=== PATIENT | female | born 1930 | race Caucasian/White ===

== ENCOUNTER 2016-09-06 01:11 | Inpatient (IN) | payer OTHER, MEDICARE ==
[2016-09-06] VITALS (9 sets, daily range): BP systolic 124–199; BP diastolic 63–95; PULSE 82–105; RESP 18–20; TEMP 97.1–98.9; O2SAT 91–97
[~2016-09-06] VITALS: Ht 154.9 cm; Wt 45.9 kg
[~2016-09-06 01:11] MED LIST: AMLO5TAB22 PO; CLOP75TA PO; HYDR-3533 PO; LEVO50TA51 PO; LOVA1TAB47 PO; OMEP20CA5 PO
[2016-09-06] MEDS ORDERED: PLAV75TA29 PO (01:43)
[2016-09-06] MEDS ORDERED: PRAV20TA2 PO (01:43)
[2016-09-06] MEDS ORDERED: AMLO5TAB2 PO (01:43)
[2016-09-06] MEDS ORDERED: MULT-6 PO (01:43)
[2016-09-06] MEDS ORDERED: VENTAER INH (01:43)
[2016-09-06] MEDS ORDERED: ASCO500C PO (01:43)
[2016-09-06] MEDS ORDERED: LEVO50TA4 PO (01:44)
[2016-09-06] MEDS ORDERED: LEVO75TA3 PO (01:45)
[2016-09-06] MEDS ORDERED: SODIUM CHLOR 0.9% 1000 ML INJ 1,000 ML IV SCH (02:02)
--- NOTE | 2016-09-06 02:09 | PD ---
HPI Chief Complaint: GI Complaint Time Seen by Provider: 02:02 Travel History International Travel<30 days: No Contact w/Intl Traveler<30days: No Traveled to known affect area: No History of Present Illness HPI The patient is an 85-year-old female who states she had diarrhea on Tuesday, 5 days ago, and she hasn't had a bowel movement since. She states she had noted blood passing from the rectum tonight and this is why she came in. She states she has a cycle of diarrhea and then no bowel movement for a number of days for the past year. She has a history of rectal cancer, and 1995 Dr. Ibarra removed a portion of her rectum. She has not seen Dr. Ibarra in for years. She is on Plavix because of deep vein thrombosis. She denies any syncopal or near syncopal spells. She does have rectal pain. PFSH Past Medical History Hx Anticoagulant Therapy: Yes (PLAVIX - BLOOD CLOT R FEMORAL ) Arthritis: Yes Autoimmune Disease: No Blood Disorders: No Anxiety: No Depression: No Cancer: Yes (hx rectal ca 17 years ago) Cardiovascular Problems: Yes (BLOOD CLOTS LEGS) High Cholesterol: Yes Chemotherapy: Yes (1995) Chest Pain: No Congestive Heart Failure: No Diminished Hearing: Yes (NOT WITH PT THIS VISIT 09/06/16) Deep Vein Thrombosis: Yes (R GROIN ) Endocrine: Yes (hypothyroid) Gastrointestinal Disorders: Yes GERD: Yes Genitourinary: Yes (STENT LEFT KIDNEY) Hypertension: Yes Immune Disorder: No Implanted Vascular Access Dvce: Yes Musculoskeletal: Yes Neurologic: No Psychiatric: No Reproductive: No Respiratory: No Radiation Therapy: Yes (1995) Sickle Cell Disease: No Thyroid Disease: Yes (HYPO) Menopausal: Yes Past Surgical History Abdominal Surgery: Yes (APPEmilie, CHOLEY) Appendectomy: Yes Body Medical Devices: RENAL STENT Cardiac Surgery: No Cholecystectomy: Yes Genitourinary Surgery: Yes (RENAL STENT, RECTAL CANCER) Gynecologic Surgery: No Hysterectomy: Yes Thoracic Surgery: No Tonsillectomy: Yes Other Surgery: Yes Social History Alcohol Use: No Tobacco Use: No (quit 30 years ago) Substance Use: No Allergies-Medications (Allergen,Severity, Reaction): Coded Allergies: No Known Allergies (Verified , 09/06/16) Reported Meds & Prescriptions Reported Meds & Active Scripts Active Reported Levothyroxine (Levothyroxine Sodium) 75 Mcg Tab 75 Mcg PO DAILY Centrum (Multiple Vitamins W/ Minerals) 1 Tab 1 Tab PO DAILY Vitamin C (Ascorbic Acid) 500 Mg Cap 500 Mg PO Ventolin Hfa 18 GM Inh (Albuterol Sulfate) 90 Mcg/Act Aer 2 Puff INH Q4-6H PRN Amlodipine (Amlodipine Besylate) 5 Mg Tab 5 Mg PO DAILY Pravastatin 20 Mg Tab 20 Mg PO DAILY Plavix (Clopidogrel Bisulfate) 75 Mg Tab 75 Mg PO DAILY Review of Systems Except as stated in HPI: all other systems reviewed are Neg Physical Exam Narrative GENERAL: The patient is thin, alert, oriented 3, slightly anemic appearing in moderate apparent distress with her rectal discomfort. SKIN: Warm and dry. HEAD: Atraumatic. Normocephalic. EYES: Pupils equal and round. No scleral icterus. No injection or drainage. ENT: No nasal bleeding or discharge. Mucous membranes pink and moist. NECK: Trachea midline. No JVD. CARDIOVASCULAR: Regular rate and rhythm. No murmur appreciated. RESPIRATORY: No accessory muscle use. Clear to auscultation. Breath sounds equal bilaterally. GASTROINTESTINAL: Abdomen soft, non-tender, nondistended. Hepatic and splenic margins not palpable. No guarding or rebound is present. MUSCULOSKELETAL: No obvious deformities. No clubbing. No cyanosis. No edema. NEUROLOGICAL: Awake and alert. No obvious cranial nerve deficits. Motor grossly within normal limits. Normal speech. PSYCHIATRIC: Appropriate mood and affect; insight and judgment normal. RECTAL EXAM: There is a fecal impaction in the rectum. There is also bright red blood in the rectum and stool is brown but guaiac positive. There is considerable tenderness in the rectum. No masses are felt. Data Data Last Documented VS Vital Signs Date Time Temp Pulse Resp B/P Pulse Ox O2 Delivery O2 Flow Rate FiO2 09/06/16 03:31 98 18 178/68 91 Room Air 09/06/16 01:28 97.4 Orders Complete Blood Count With Diff (09/06/16 02:02) Lipase (09/06/16 02:02) Prothrombin Time / Inr (Pt) (09/06/16 02:02) Act Partial Throm Time (Ptt) (09/06/16 02:02) Urinalysis - C+S If Indicated (09/06/16 02:02) Ecg Monitoring (09/06/16 02:02) Iv Access Insert/Monitor (09/06/16 02:02) Oximetry (09/06/16 02:02) Sodium Chlor 0.9% 1000 Ml Inj (Ns 1000 M (09/06/16 02:02) Sodium Chloride 0.9% Flush (Ns Flush) (09/06/16 02:15) Fleets Enema (Adult) (Fleets Enema (Adul (09/06/16 02:15) Comprehensive Metabolic Panel (09/06/16 02:25) Ondansetron Inj (Zofran Inj) (09/06/16 02:45) Magnesium Citrate Liq (Citroma Liq) (09/06/16 03:45) Labs Laboratory Tests Test 09/06/16 02:25 White Blood Count 12.5 TH/MM3 Red Blood Count 4.09 MIL/MM3 Hemoglobin 12.6 GM/DL Hematocrit 37.9 % Mean Corpuscular Volume 92.5 FL Mean Corpuscular Hemoglobin 30.8 PG Mean Corpuscular Hemoglobin 33.3 % Concent Red Cell Distribution Width 13.5 % Platelet Count 218 TH/MM3 Mean Platelet Volume 9.1 FL Neutrophils (%) (Auto) 90.9 % Lymphocytes (%) (Auto) 4.5 % Monocytes (%) (Auto) 3.8 % Eosinophils (%) (Auto) 0.4 % Basophils (%) (Auto) 0.4 % Neutrophils # (Auto) 11.2 TH/MM3 Lymphocytes # (Auto) 0.6 TH/MM3 Monocytes # (Auto) 0.5 TH/MM3 Eosinophils # (Auto) 0.1 TH/MM3 Basophils # (Auto) 0.1 TH/MM3 CBC Comment DIFF FINAL Differential Comment Prothrombin Time 10.3 SEC Prothromb Time International 0.9 RATIO Ratio Activated Partial 28.3 SEC Thromboplast Time Urine Collection Type CATH Urine Color YELLOW Urine Turbidity CLEAR Urine pH 6.0 Urine Specific [place] 1.017 Urine Protein 100 mg/dL Urine Glucose (UA) NEG mg/dL Urine Ketones NEG mg/dL Urine Occult Blood NEG Urine Nitrite NEG Urine Bilirubin NEG Urine Leukocyte Esterase NEG Urine WBC 0-2 /hpf Urine Squamous Epithelial 0-5 /hpf Cells Urine Renal Epithelial Cells /hpf Urine Hyaline Casts 0-2 /lpf Urine Mucus OCC /lpf Microscopic Urinalysis Comment CATH-CULT NOT IND Sodium Level 141 MEQ/L Potassium Level 3.8 MEQ/L Chloride Level 107 MEQ/L Carbon Dioxide Level 22.6 MEQ/L Anion Gap 11 MEQ/L Blood Urea Nitrogen 28 MG/DL Creatinine 1.10 MG/DL Estimat Glomerular Filtration 47 ML/MIN Rate Random Glucose 163 MG/DL Calcium Level 9.1 MG/DL Total Bilirubin 0.3 MG/DL Aspartate Amino Transf 22 U/L (AST/SGOT) Alanine Aminotransferase 37 U/L (ALT/SGPT) Alkaline Phosphatase 119 U/L Total Protein 7.7 GM/DL Albumin 4.2 GM/DL Lipase 272 U/L [facility] Medical Decision Making Medical Screen Exam Complete: Yes Emergency Medical Condition: Yes Medical Record Reviewed: Yes Differential Diagnosis Rectal bleed, anemia, electrolyte disorder, dehydration, intractable rectal pain , diarrhea/constipation episodes Narrative Course The patient has rectal bleed. She also has a fecal impaction with significant rectal pain. She did vomit once here but nausea is infrequent for her she states. He is now not nauseated. Plan: The patient be admitted to Dr. Harper for 23 hour observation. Physician Communication Physician Communication I discussed the patient with Dr. Harper, the patient will be a admitted for 23 hour observation. Diagnosis Primary Impression: Rectal bleeding Additional Impressions: Rectal cancer Rectal pain Admitting Information Admitting Physician Requests: Observation Anibal [place] MD Sep 06, 2016 02:09
[2016-09-06] MEDS ORDERED: SOD PHOSPHATE/SOD BIPHOSPHATE (ADULT) ENEMA 133ML PR ONE (02:15)
[2016-09-06] MEDS ORDERED: SODIUM CHLORIDE 0.9% FLUSH 5 ML FLUSH IVF PRN (02:15)
[2016-09-06 02:38] LABS: AUTOMATED NEUTROPHIL # 11.2 TH/MM3 (1.8-7.7); BASOPHIL # 0.1 TH/MM3 (0-0.2); BASOPHIL % 0.4 % (0.0-2.0); BLOOD, URINE NEG (NEG); EOSINOPHIL # 0.1 TH/MM3 (0-0.4); EOSINOPHIL % 0.4 % (0.0-4.0); GLUCOSE,URINE NEG (NEG); HEMATOCRIT 37.9 % (35.0-46.0); KETONE, URINE NEG (NEG); LYMPH % 4.5 % (9.0-44.0); LYMPHOCYTE # 0.6 TH/MM3 (1.0-4.8); MEAN CELL VOLUME 92.5 FL (80.0-100.0); MEAN CORPUSCULAR HEMOGLOBIN 30.8 PG (27.0-34.0); MEAN CORPUSCULAR HGB CONC 33.3 % (32.0-36.0); MONO % 3.8 % (0.0-8.0); NEUT % 90.9 % (16.0-70.0); NITRITE,URINE NEG (NEG); PLATELET COUNT 218 TH/MM3 (150-450); RED BLOOD COUNT 4.09 MIL/MM3 (4.00-5.30); RED CELL DISTRIBUTION WIDTH 13.5 % (11.6-17.2); WHITE BLOOD COUNT 12.5 TH/MM3 (4.0-11.0)
[2016-09-06 02:40] LABS: HEMO FLAGS DIFF FINAL
[2016-09-06 02:42] LABS: URINE COLOR YELLOW (YELLW/STRAW)
[2016-09-06 02:43] LABS: CHLORIDE 107 MEQ/L (98-107); POTASSIUM 3.8 MEQ/L (3.5-5.1); SODIUM (NA) 141 MEQ/L (136-145); SQUAMOUS EPITHELIAL CELL URINE 0-5 /hpf (0-5); WBC, URINE 0-2 /hpf (0-5)
[2016-09-06 02:44] LABS: HYALINE CAST, URINE 0-2 /lpf (RARE); MUCUS URINE OCC /lpf (OCC)
[2016-09-06] MEDS ORDERED: ONDANSETRON HCL 4 MG/2 ML VIAL IV ONE ×2 (02:45→04:00)
[2016-09-06 02:46] LABS: METHOD OF COLLECTION CATH
[2016-09-06 02:47] LABS: ANION GAP 11 MEQ/L (5-15); APTT (PATIENT) 28.3 SEC (24.3-30.1); BICARBONATE 22.6 MEQ/L (21.0-32.0); BLOOD UREA NITROGEN 28 MG/DL (7-18); INTERNATIONAL NORMALIZED RATIO 0.9 RATIO; PROTHROMBIN TIME - PATIENT 10.3 SEC (9.8-11.6)
[2016-09-06 02:48] LABS: COMMENT (UR) CATH-CULT NOT IND; CULTURE IF INDICATED CATH CULTURE NOT IND
[2016-09-06 02:50] LABS: ALT (GPT) 37 U/L (10-53); AST (GOT) 22 U/L (15-37); GLOMERULAR FILTRATION RATE 47 ML/MIN (>89)
[2016-09-06 02:52] LABS: TOTAL BILIRUBIN ADULT 0.3 MG/DL (0.2-1.0)
[2016-09-06 02:53] LABS: ALKALINE PHOSPHATASE 119 U/L (45-117)
[2016-09-06] MEDS ORDERED: MAGNESIUM CITRATE SOLN 300 ML BTL PO ONE (03:45)
[2016-09-06] MEDS ORDERED: SODIUM CHLORIDE 0.9% FLUSH 5 ML FLUSH FLUSH PRN (04:00)
[2016-09-06] MEDS ORDERED: NALOXONE HCL 0.4 MG/ML AMP IV PRN (04:00)
--- NOTE | 2016-09-06 05:27 | RADHPO ---
EXAM DATE/TIME: 09/06/2016 04:47 [place] COMPARISON: No previous studies available for comparison. INDICATIONS : Abdomen pain. MEDICAL HISTORY : Hypertension. Hypercholesterolemia. History of anus carcinoma SURGICAL HISTORY : Hysterectomy. ENCOUNTER: Initial ACUITY: 3 days PAIN SCORE: 7/10 LOCATION: Bilateral Abdomen FINDINGS: Supine and upright views of the abdomen were performed. The abdominal bowel gas pattern is normal. No air fluid levels are seen. No abnormal masses, calcifications, or organomegaly is seen. Clips ar e seen in the right upper quadrant presumably from prior cholecystectomy. The visualized lower lungs are clear. No evidence of free intraperitoneal gas. There is a dextrocurvature of the thoracic spine . There some associated degenerative change. 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 CONCLUSION: Negative abdominal series. An acute abnormality is not seen. There is chronic change described above. Bright Casarez MD on September 06, 2016 at 5:24 Board Certified Radiologist. This report was verified electronically.
[2016-09-06] MEDS: SODIUM CHLORIDE 0.9% FLUSH 5 ML FLUSH FLUSH SCH ×2 (08:09→21:50)
[2016-09-06] MEDS ORDERED: ALBUTEROL SULFATE 90 MCG/ACT HFA 8 GM INHALER INH PRN (08:30)
[2016-09-06] MEDS: CLOPIDOGREL 75 MG TAB PO SCH (09:00)
[2016-09-06] MEDS: LEVOTHYROXINE SODIUM 75 MCG TAB PO SCH (09:00)
[2016-09-06] MEDS: MULTIVITAMINS/MINERALS THERAPEUTIC TAB PO SCH (09:00)
[2016-09-06] MEDS: DOCUSATE SODIUM 50 MG/SENNA 8.6 MG TAB PO SCH ×2 (09:00→21:00)
[2016-09-06] MEDS: PRAVASTATIN SOD 20 MG TAB PO SCH (09:00)
[2016-09-06] MEDS: amLODIPine BESYLATE 5 MG TAB PO SCH (09:00)
[2016-09-06 09:08] LABS: HEMATOCRIT 36.8 % (35.0-46.0); REVIEW FLAG FINAL
--- NOTE | 2016-09-06 10:34 | HHI.HP ---
HPI Service [facility] Primary Care Physician Angel Luis Butts MD Admission Diagnosis rectal bleed, rectal pain, constipation, fecal impaction, rectal can Diagnoses: Travel History International Travel<30 Days: No Contact w/Intl Traveler <30 Da: No Traveled to Known Affected Are: No History of Present Illness This is a pleasant 85-year-old female with past medical history of rectal cancer status post partial removal of her rectum years ago with Dr. Baires who presents with a five-day history of constipation. The patient states that over the past year she has had cycles of loose stools followed by constipation. She is complaining of some rectal pain. Apparently she had a small amount of bright red blood from her rectum last night. The patient had abdominal x-ray in the emergency department showing normal gas pattern. Guaiac was positive for blood per rectum and she was noted to have a fecal impaction on rectal exam. The patient was given magnesium citrate and this morning is having copious loose bowel movements. She states that she still has pain in the rectum as well as some mild abdominal cramping prior to bowel movements but denies any further bleeding. Hemoglobin is stable this morning. The patient denies any recent weight loss, abdominal pain nausea or vomiting. Review of Systems Except as stated in HPI: all other systems reviewed are Neg Past Family Social History Past Medical History hypertension colon cancer dyslipidemia hypothyroidism Questionable history of TIA Reported Medications Allergies Coded Allergies Type Severity Reaction Last Updated Verified No Known Allergies 09/06/16 Yes Active Scripts Medications Dose Route/Sig Days Date Category Levothyroxine (Levothyroxine Sodium) 75 Mcg Tab 75 Mcg PO DAILY 09/06/16 Reported Centrum (Multiple Vitamins W/ Minerals) 1 Tab 1 Tab PO DAILY 09/06/16 Reported Vitamin C (Ascorbic Acid) 500 Mg Cap 500 Mg PO 09/06/16 Reported Ventolin Hfa 18 GM Inh (Albuterol Sulfate) 90 Mcg/Act Aer 2 Puff INH Q4-6H PRN 09/06/16 Reported Amlodipine (Amlodipine Besylate) 5 Mg Tab 5 Mg PO DAILY 09/06/16 Reported Pravastatin 20 Mg Tab 20 Mg PO DAILY 09/06/16 Reported Plavix (Clopidogrel Bisulfate) 75 Mg Tab 75 Mg PO DAILY 09/06/16 Reported Allergies: Coded Allergies: No Known Allergies (Verified , 09/06/16) Family History Reviewed and noncontributory Social History No alcohol tobacco or drug use. She is . Physical Exam Vital Signs Vital Signs Date Time Temp Pulse Resp B/P Pulse Ox O2 Delivery O2 Flow Rate FiO2 09/06/16 08:00 98.8 95 18 172/80 93 09/06/16 05:45 97 09/06/16 05:20 98.0 99 20 156/75 93 09/06/16 04:27 97.7 104 18 172/71 92 Room Air 09/06/16 03:31 98 18 178/68 91 Room Air 09/06/16 01:28 97.4 105 20 199/95 97 Physical Exam GENERAL: Well-nourished, well-developed pleasant elderly female patient. SKIN: Warm and dry. HEAD: Normocephalic. EYES: No scleral icterus. No injection or drainage. NECK: Supple, trachea midline. No JVD or lymphadenopathy. CARDIOVASCULAR: Regular rate and rhythm without murmurs, gallops, or rubs. RESPIRATORY: Breath sounds equal and clear to auscultation bilaterally. No accessory muscle use. GASTROINTESTINAL: Bowel sounds hyperactive Abdomen soft, non-tender, nondistended. EXTREMITIES: No cyanosis, or edema. NEUROLOGICAL: Awake, alert, and oriented x 3. Non-focal. Laboratory Laboratory Tests Test 09/06/16 09/06/16 02:25 08:50 White Blood Count 12.5 Red Blood Count 4.09 Hemoglobin 12.6 12.4 Hematocrit 37.9 36.8 Mean Corpuscular Volume 92.5 Mean Corpuscular Hemoglobin 30.8 Mean Corpuscular Hemoglobin 33.3 Concent Red Cell Distribution Width 13.5 Platelet Count 218 Mean Platelet Volume 9.1 Neutrophils (%) (Auto) 90.9 Lymphocytes (%) (Auto) 4.5 Monocytes (%) (Auto) 3.8 Eosinophils (%) (Auto) 0.4 Basophils (%) (Auto) 0.4 Neutrophils # (Auto) 11.2 Lymphocytes # (Auto) 0.6 Monocytes # (Auto) 0.5 Eosinophils # (Auto) 0.1 Basophils # (Auto) 0.1 CBC Comment DIFF FINAL Differential Comment Prothrombin Time 10.3 Prothromb Time International 0.9 Ratio Activated Partial 28.3 Thromboplast Time Urine Collection Type CATH Urine Color YELLOW Urine Turbidity CLEAR Urine pH 6.0 Urine Specific [place] 1.017 Urine Protein 100 Urine Glucose (UA) NEG Urine Ketones NEG Urine Occult Blood NEG Urine Nitrite NEG Urine Bilirubin NEG Urine Leukocyte Esterase NEG Urine WBC 0-2 Urine Squamous Epithelial 0-5 Cells Urine Renal Epithelial Cells Urine Hyaline Casts 0-2 Urine Mucus OCC Microscopic Urinalysis Comment CATH-CULT NOT IND Sodium Level 141 Potassium Level 3.8 Chloride Level 107 Carbon Dioxide Level 22.6 Anion Gap 11 Blood Urea Nitrogen 28 Creatinine 1.10 Estimat Glomerular Filtration 47 Rate Random Glucose 163 Calcium Level 9.1 Total Bilirubin 0.3 Aspartate Amino Transf 22 (AST/SGOT) Alanine Aminotransferase 37 (ALT/SGPT) Alkaline Phosphatase 119 Total Protein 7.7 Albumin 4.2 Lipase 272 Result Diagram: 09/06/16 0850 09/06/16 0225 Imaging Last Impressions Abdomen X-Ray 09/06/16 0431 Signed Impressions: Service Date/Time: Tuesday, September 06, 2016 04:47 - CONCLUSION: Negative abdominal series. An acute abnormality is not seen. There is chronic change described above. Bright Casarez MD Assessment and Plan Problem List: (1) Fecal impaction in rectum ICD Code: K56.41 Status: Acute (2) Rectal bleeding ICD Code: K62.5 Status: Acute Assessment and Plan -Rectal impaction, resolved with mag citrate now having numerous loose stools. -History of rectal cancer resected years ago with Dr. Ibarra. -Trace amount of rectal bleeding likely related to the rectal impaction now resolved with stable hemoglobin. -History of DVT for which she apparently takes Plavix. She denies any history of coronary artery disease. -hypertension -dyslipidemia -hypothyroidism We will observe the patient through this morning. Obtain a physical therapy consultation. If she does well she can be discharged home this afternoon. She needs to stay on a good bowel regimen as she has had a year-long history of constipation alternating with loose stools and this may be indicative of recurrent fecal impaction. There was no mass identified via digital examination of her rectum by the ER physician. I recommend she follow-up with her primary care physician and may consider a follow-up appointment with Dr. Ibarra who performed her surgery for rectal carcinoma years ago. Plan of care discussed with the patient and her at bedside who are in agreement with plan. Emma Krishnamurthy MD Sep 06, 2016 10:34
[2016-09-06] MEDS ORDERED: MILKSUS PO (10:38)
--- NOTE | 2016-09-06 12:00 | MB ---
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 The patient has had intermittent episodes of diarrhea and constipation for the past year. She went to the emergency room yesterday with an episode of inability to move her bowels associated anal pain and some small amounts of red rectal bleeding. The patient has had several bowel movements since admission. PHYSICAL EXAMINATION VITAL SIGNS: On exam the patient is afebrile. Normal vital signs. GENERAL: She is alert, without distress. She states that she has some soreness in the anus. ABDOMEN: Her abdomen is soft and nontender. RECTAL: Inspection anus shows loose stools in the patient's bed. No blood is visible. Digital exam reveals mild anal stenosis but it does allow insertion of the index finger easily. There is no fecal impaction at this time. The right mucosa is palpably normal. ASSESSMENT Resolution of fecal impaction. PLAN The patient can be discharged in the hospital on a high-fiber diet illness and I will see her in the office in a week for sigmoidoscopy. Subhash Baires MD DM/SSB /11:24 AM /11:52 AM
[2016-09-07] VITALS (7 sets, daily range): BP systolic 116–153; BP diastolic 61–95; PULSE 61–126; RESP 18–20; TEMP 97–97.9; O2SAT 91–98
[2016-09-07] MEDS: LEVOTHYROXINE SODIUM 75 MCG TAB PO SCH (05:38)
[2016-09-07 07:05] LABS: POTASSIUM 3.2 MEQ/L (3.5-5.1)
[2016-09-07 07:15] LABS: AUTOMATED NEUTROPHIL # 8.4 TH/MM3 (1.8-7.7); BASOPHIL % 0.4 % (0.0-2.0); EOSINOPHIL # 0.1 TH/MM3 (0-0.4); EOSINOPHIL % 1.1 % (0.0-4.0); HEMATOCRIT 35.4 % (35.0-46.0); HEMO FLAGS DIFF FINAL; LYMPH % 7.7 % (9.0-44.0); LYMPHOCYTE # 0.8 TH/MM3 (1.0-4.8); MEAN CELL VOLUME 93.5 FL (80.0-100.0); MEAN CORPUSCULAR HEMOGLOBIN 30.5 PG (27.0-34.0); MEAN CORPUSCULAR HGB CONC 32.6 % (32.0-36.0); MONO % 5.7 % (0.0-8.0); NEUT % 85.1 % (16.0-70.0); PLATELET COUNT 168 TH/MM3 (150-450); RED BLOOD COUNT 3.79 MIL/MM3 (4.00-5.30); RED CELL DISTRIBUTION WIDTH 13.6 % (11.6-17.2); WHITE BLOOD COUNT 9.9 TH/MM3 (4.0-11.0)
[2016-09-07] MEDS: MULTIVITAMINS/MINERALS THERAPEUTIC TAB PO SCH (08:09)
[2016-09-07] MEDS: PRAVASTATIN SOD 20 MG TAB PO SCH (08:10)
[2016-09-07] MEDS: amLODIPine BESYLATE 5 MG TAB PO SCH (08:10)
[2016-09-07] MEDS: CLOPIDOGREL 75 MG TAB PO SCH (08:10)
[2016-09-07] MEDS: SODIUM CHLORIDE 0.9% FLUSH 5 ML FLUSH FLUSH SCH ×2 (08:11→20:52)
[2016-09-07] MEDS: DOCUSATE SODIUM 50 MG/SENNA 8.6 MG TAB PO SCH ×2 (08:11→20:52)
[2016-09-07] MEDS ORDERED: POTASSIUM CHLORIDE 20 MEQ CONTROLLED RELEASE TAB PO ONE (09:15)
--- NOTE | 2016-09-07 15:01 | HHI.PR ---
Subjective Remarks Patient feels improved today. She ambulated well with physical therapy. Loose stools have slowed down and she is eating well. However she is feeling some dysuria suprapubic pressure and chills which she states is typical for her when she gets a UTI. She's had frequent UTIs over the past several months. Objective Vitals Vital Signs Date Time Temp Pulse Resp B/P Pulse Ox O2 Delivery O2 Flow Rate FiO2 09/07/16 12:00 97.5 65 20 116/67 95 09/07/16 07:52 97.5 61 20 134/72 94 09/07/16 04:45 93 Nasal Cannula 2.00 09/07/16 04:00 97.9 94 18 153/90 93 09/07/16 00:00 97.1 84 18 143/71 98 09/06/16 20:00 82 09/06/16 20:00 97.1 84 18 124/63 96 09/06/16 15:30 98.6 93 18 155/70 95 I/O 09/06/16 09/06/16 09/06/16 09/07/16 09/07/16 09/07/16 07:00 15:00 23:00 07:00 15:00 23:00 Intake Total 1180 ml 780 ml Balance 1180 ml 780 ml Intake Oral 480 ml 780 ml IV Total 700 ml # Voids 12 5 2 # Bowel Movements 1 16 8 1 Result Diagram: 09/07/16 0540 09/07/16 0540 Objective Remarks GENERAL: Well-nourished, well-developed very pleasant elderly female patient. SKIN: Warm and dry. HEAD: Normocephalic. EYES: No scleral icterus. No injection or drainage. NECK: Supple, trachea midline. No JVD or lymphadenopathy. CARDIOVASCULAR: Regular rate and rhythm without murmurs, gallops, or rubs. RESPIRATORY: Breath sounds equal bilaterally. No accessory muscle use. GASTROINTESTINAL: Abdomen soft, non-tender, nondistended. EXTREMITIES: No cyanosis, or edema. NEUROLOGICAL: Awake, alert, and oriented x 3. Non-focal. A/P Problem List: (1) Fecal impaction in rectum ICD Code: K56.41 Status: Resolved (2) Rectal bleeding ICD Code: K62.5 Status: Resolved (3) UTI (urinary tract infection) ICD Code: N39.0 Status: Acute Assessment and Plan -Rectal impaction, resolved with mag citrate now having numerous loose stools. -History of anal cancer resected years ago with Dr. Ibarra. -Trace amount of rectal bleeding likely related to the rectal impaction now resolved with stable hemoglobin. -History of DVT for which she apparently takes Plavix. She denies any history of coronary artery disease. -hypertension -dyslipidemia -hypothyroidism -UTI Patient improved today. Her loose stools have slowed down. She is having symptoms consistent with urinary tract infection and UA is suspicious for infection. Will give Rocephin 1 g IV now. Prescribed Ceftin for 7 days. The patient is to follow-up in [address] Carr for flexible sigmoidoscopy. The patient was encouraged to call her primary care physician's office on Tuesday to ensure that her urinary tract infection is susceptible to Ceftin. She is counseled to return to the ER for fever nausea vomiting or worsening chills. Home health care has been arranged. The patient will be discharged home this afternoon. Plan of care discussed with the patient, her and her daughter. Emma Krishnamurthy MD Sep 07, 2016 15:01
--- NOTE | 2016-09-07 15:25 | HHI.FF ---
Face to Face Verification Diagnosis: (1) Fecal impaction in rectum (2) Rectal bleeding Home Health Nursing Order: Nursing assessment with vital signs I have seen patient Franchesca Jett on 09/07/16. My clinical findings support the need for the requested home health care services because: Deconditioned w/ increased weakness Limited ability to care for self Need for psychosocial assistance I certify that my clinical findings support that this patient is homebound because: Need for psychosocial assistance Emma Krishnamurthy MD Sep 07, 2016 15:25
[2016-09-07 15:37] LABS: BLOOD, URINE LARGE (NEG); GLUCOSE,URINE NEG (NEG); KETONE, URINE NEG (NEG); NITRITE,URINE NEG (NEG)
[2016-09-07 15:47] LABS: URINE COLOR YELLOW (YELLW/STRAW)
[2016-09-07 15:48] LABS: BACTERIA, URINE MANY /hpf; COMMENT (UR) CATH-CULTURE IND; CULTURE IF INDICATED CATH CULTURE IND; WBC, URINE INNUM /hpf (0-5)
[2016-09-07] MEDS ORDERED: CEFT500T3 PO (15:59)
[2016-09-07] MEDS ORDERED: cefTRIAXone INJ 1,000 MG in SODIUM CHLORIDE 0.9% INJ 100 ML IV ONE (16:00)
--- NOTE | 2016-09-07 18:54 | HHI.PR ---
Subjective Remarks I was informed by RN at ~1800 hours that patient has diarrhea and does not feel comfortable being discharged as there is no family to care for her tonight and home health care does not start until tomorrow. I informed Dr. Krishnamurthy. Discharge will be held. Patient to start po Ceftin in the morning. Objective Vitals Vital Signs Date Time Temp Pulse Resp B/P Pulse Ox O2 Delivery O2 Flow Rate FiO2 09/07/16 16:00 97.5 68 20 128/61 97 09/07/16 12:00 97.5 65 20 116/67 95 09/07/16 07:52 97.5 61 20 134/72 94 09/07/16 04:45 93 Nasal Cannula 2.00 09/07/16 04:00 97.9 94 18 153/90 93 09/07/16 00:00 97.1 84 18 143/71 98 09/06/16 20:00 82 09/06/16 20:00 97.1 84 18 124/63 96 I/O 09/06/16 09/06/16 09/06/16 09/07/16 09/07/16 09/07/16 07:00 15:00 23:00 07:00 15:00 23:00 Intake Total 1180 ml 780 ml 570 ml Balance 1180 ml 780 ml 570 ml Intake Oral 480 ml 780 ml 570 ml IV Total 700 ml # Voids 12 5 2 1 # Bowel Movements 1 16 8 1 2 Result Diagram: 09/07/16 0540 09/07/16 0540 A/P Problem List: (1) Fecal impaction in rectum ICD Code: K56.41 Status: Resolved (2) Rectal bleeding ICD Code: K62.5 Status: Resolved (3) UTI (urinary tract infection) ICD Code: N39.0 Status: Acute Dari Arellano Sep 07, 2016 18:54
[2016-09-08] VITALS (12 sets, daily range): BP systolic 92–125; BP diastolic 58–84; PULSE 58–136; RESP 18–21; TEMP 97.1–97.8; O2SAT 91–98
[2016-09-08] MEDS: LEVOTHYROXINE SODIUM 75 MCG TAB PO SCH (06:09)
[2016-09-08] MEDS ORDERED: DILTIAZEM HCL 25 MG/5 ML VIAL IV ONE (06:45)
[2016-09-08 07:28] LABS: POTASSIUM 3.7 MEQ/L (3.5-5.1)
[2016-09-08 07:57] LABS: AUTOMATED NEUTROPHIL # 7.2 TH/MM3 (1.8-7.7); BASOPHIL % 0.5 % (0.0-2.0); EOSINOPHIL # 0.3 TH/MM3 (0-0.4); EOSINOPHIL % 3.2 % (0.0-4.0); HEMATOCRIT 42.9 % (35.0-46.0); HEMO FLAGS DIFF FINAL; LYMPH % 11.8 % (9.0-44.0); LYMPHOCYTE # 1.1 TH/MM3 (1.0-4.8); MEAN CELL VOLUME 92.3 FL (80.0-100.0); MEAN CORPUSCULAR HEMOGLOBIN 30.2 PG (27.0-34.0); MEAN CORPUSCULAR HGB CONC 32.7 % (32.0-36.0); MONO % 6.1 % (0.0-8.0); NEUT % 78.4 % (16.0-70.0); PLATELET COUNT 203 TH/MM3 (150-450); RED BLOOD COUNT 4.65 MIL/MM3 (4.00-5.30); RED CELL DISTRIBUTION WIDTH 13.5 % (11.6-17.2); WHITE BLOOD COUNT 9.2 TH/MM3 (4.0-11.0)
[2016-09-08 08:09] LABS: BICARBONATE 24.5 MEQ/L (21.0-32.0); MAGNESIUM 2.3 MG/DL (1.5-2.5)
[2016-09-08] MEDS: MULTIVITAMINS/MINERALS THERAPEUTIC TAB PO SCH (09:05)
[2016-09-08] MEDS: CEFUROXIME AXETIL 500 MG TAB PO SCH ×2 (09:05→20:46)
[2016-09-08] MEDS: DOCUSATE SODIUM 50 MG/SENNA 8.6 MG TAB PO SCH ×2 (09:05→20:47)
[2016-09-08] MEDS: PRAVASTATIN SOD 20 MG TAB PO SCH (09:05)
[2016-09-08] MEDS: amLODIPine BESYLATE 5 MG TAB PO SCH (09:05)
[2016-09-08] MEDS: CLOPIDOGREL 75 MG TAB PO SCH (09:05)
[2016-09-08] MEDS: SODIUM CHLORIDE 0.9% FLUSH 5 ML FLUSH FLUSH SCH ×2 (09:05→20:46)
--- NOTE | 2016-09-08 11:13 | HHI.PR ---
Subjective Remarks Patient is seen at this time in follow-up for palpitations which developed overnight. Patient apparently was admitted for abdominal discomfort and some concern for fecal impaction which has since resolved. No evidence of bleeding on rectal exam. Patient now with hemoglobin which is stable. Overnight she developed some palpitations and discomfort and was found to have atrial fibrillation with rapid ventricular response in the 130s. This did resolve initially with IV Cardizem did return. Patient notes no history of cardiac arrhythmias or cardiac disease. She today is feeling palpitations and chest discomfort. Objective Vitals Vital Signs Date Time Temp Pulse Resp B/P Pulse Ox O2 Delivery O2 Flow Rate FiO2 09/08/16 08:00 97.2 82 20 118/80 96 09/08/16 07:15 87 20 101/65 94 09/08/16 06:54 88 20 92/58 94 09/08/16 06:50 136 91 09/08/16 00:00 97.1 66 18 120/60 98 09/07/16 20:00 97.2 68 18 121/67 98 09/07/16 20:00 73 09/07/16 16:00 97.5 68 20 128/61 97 09/07/16 12:00 97.5 65 20 116/67 95 I/O 09/07/16 09/07/16 09/07/16 09/08/16 09/08/16 09/08/16 07:00 15:00 23:00 07:00 15:00 23:00 Intake Total 780 ml 690 ml Balance 780 ml 690 ml Intake Oral 780 ml 690 ml # Voids 5 2 3 6 # Bowel Movements 8 1 4 3 Result Diagram: 09/08/16 0709/08/16 0705 Imaging Last Impressions Abdomen X-Ray 09/06/16 0431 Signed Impressions: Service Date/Time: Tuesday, September 06, 2016 04:47 - CONCLUSION: Negative abdominal series. An acute abnormality is not seen. There is chronic change described above. Bright Casarez MD Objective Remarks GENERAL: This is a well-nourished, well-developed patient, in no apparent distress. CARDIOVASCULAR:afib, RVR without murmurs, gallops, or rubs. RESPIRATORY: Clear to auscultation. Breath sounds equal bilaterally. No wheezes , rales, or rhonchi. GASTROINTESTINAL: Abdomen soft, non-tender, nondistended. Normal active bowel sounds MUSCULOSKELETAL: Extremities without clubbing, cyanosis, or edema. NEURO: Alert & Oriented x4 to person, place, time, situation. Moves all ext x4 A/P Problem List: (1) Fecal impaction in rectum ICD Code: K56.41 Status: Resolved Plan: Resolved after 24 bowel movements in the last 24 hours (2) Rectal bleeding ICD Code: K62.5 Status: Resolved Plan: No evidence of bleeding on exam at this time, hemoglobin stable. Patient need outpatient flexible sigmoidoscopy per colorectal (3) UTI (urinary tract infection) ICD Code: N39.0 Status: Acute Plan: Empiric antibiotics have been given. Cultures are still pending (4) Atrial fibrillation ICD Code: I48.91 Status: Acute Plan: Continue with Cardizem, echocardiogram pending, will follow cardiac enzymes and EKG Continue telemetry No previous history trop/ck mb pending Physician Certification 2 Midnight Certification Type: Admission for Inpatient Services Order for Inpatient Services The services are ordered in accordance with Medicare regulations or non- Medicare payer requirements, as applicable. In the case of services not specified as inpatient-only, they are appropriately provided as inpatient services in accordance with the 2-midnight benchmark. Estimated LOS (days): 4 4 days is the estimated time the patient will need to remain in the hospital, assuming treatment plan goals are met and no additional complications. Post-Hospital Plan: Belia Miller MD Sep 08, 2016 11:13
[2016-09-08] MEDS ORDERED: DILTIAZEM HCL 25 MG/5 ML VIAL IVP ONE (11:15)
[2016-09-08] MEDS ORDERED: DILTIAZEM INJ 100 MG in SODIUM CHLORIDE 0.9% INJ 100 ML IV SCH (11:23)
[2016-09-08] MEDS: ENOXAPARIN SODIUM 40 MG/0.4 ML SYRINGE SQ SCH ×2 (11:39→22:23)
--- NOTE | 2016-09-08 15:57 | RADHPO ---
EXAM DATE/TIME: 09/08/2016 15:32 [facility] COMPARISON: CHEST SINGLE AP, November 07, 2012, 19:05. INDICATIONS : Short of breath. MEDICAL HISTORY : Hypertension. Hypercholesterolemia. History of anus carcinoma. SURGICAL HISTORY : Hysterectomy. ENCOUNTER: Initial ACUITY: 1 day PAIN SCORE: Non-responsive. LOCATION: Bilateral chest FINDINGS: A single view of the chest demonstrates the lungs to be symmetrically aerated without evidence of mas s, infiltrate or effusion. The cardiomediastinal contours are unremarkable. Osseous structures are intact. CONCLUSION: No acute disease. Jason Paz MD FACR on September 08, 2016 at 15:55 Board Certified Radiologist. This report was verified electronically.
[2016-09-08] MEDS ORDERED: DILTIAZEM HCL 60 MG TAB PO ONE (16:00)
[2016-09-08] MEDS ORDERED: DILTIAZEM HCL 60 MG TAB PO SCH ×2 (18:00→21:00)
--- NOTE | 2016-09-08 21:54 | EKG ---
Date Performed: 09/08/2016 Time Performed: 07:04:16 PTAGE: 85 years EKG: Atrial fibrillation. Poor R wave progression - probable normal variant Low QRS voltages in precordial leads Abnormal ECG PREVIOUS TRACING : 04/22/2013 18.49 Compared to the previous tracing, tachycardia no longer pr esent DOCTOR: Edy Quan Interpretating Date/Time 09/08/2016 21:52:51
[2016-09-09] VITALS: BP 122/62; PULSE 69; RESP 18; TEMP 98; O2SAT 97
[2016-09-09 04:00] VITALS: BP 131/76; PULSE 68; RESP 18; TEMP 96.7; O2SAT 93
[2016-09-09] MEDS: LEVOTHYROXINE SODIUM 75 MCG TAB PO SCH (05:39)
[2016-09-09 06:42] LABS: AUTOMATED NEUTROPHIL # 4.4 TH/MM3 (1.8-7.7); BASOPHIL # 0.1 TH/MM3 (0-0.2); BASOPHIL % 0.9 % (0.0-2.0); EOSINOPHIL # 0.2 TH/MM3 (0-0.4); EOSINOPHIL % 3.7 % (0.0-4.0); HEMATOCRIT 34.8 % (35.0-46.0); HEMO FLAGS DIFF FINAL; LYMPH % 14.6 % (9.0-44.0); LYMPHOCYTE # 0.9 TH/MM3 (1.0-4.8); MEAN CORPUSCULAR HEMOGLOBIN 30.3 PG (27.0-34.0); MEAN CORPUSCULAR HGB CONC 32.9 % (32.0-36.0); MONO % 7.7 % (0.0-8.0); NEUT % 73.1 % (16.0-70.0); PLATELET COUNT 187 TH/MM3 (150-450); RED BLOOD COUNT 3.78 MIL/MM3 (4.00-5.30); WHITE BLOOD COUNT 6.2 TH/MM3 (4.0-11.0)
[2016-09-09 08:00] VITALS: BP 141/69; PULSE 66; PULSE 77; RESP 16; TEMP 97.9; O2SAT 95
[2016-09-09] MEDS: CEFUROXIME AXETIL 500 MG TAB PO SCH (08:12)
[2016-09-09] MEDS: PRAVASTATIN SOD 20 MG TAB PO SCH (08:12)
[2016-09-09] MEDS: amLODIPine BESYLATE 5 MG TAB PO SCH (08:12)
[2016-09-09] MEDS: MULTIVITAMINS/MINERALS THERAPEUTIC TAB PO SCH (08:12)
[2016-09-09] MEDS: DOCUSATE SODIUM 50 MG/SENNA 8.6 MG TAB PO SCH (08:12)
[2016-09-09] MEDS: SODIUM CHLORIDE 0.9% FLUSH 5 ML FLUSH FLUSH SCH (08:14)
--- NOTE | 2016-09-09 08:14 | MB ---
cc: PADMINI MARIE MD DATE OF CONSULTATION: 09/09/2016 REASON FOR CONSULTATION Newly discovered atrial fibrillation. HISTORY OF PRESENT ILLNESS The patient is a very pleasant 85-year-old woman who is admitted for noncardiac reasons of constipation, loose stools in the setting of rectal cancer with partial removal of the rectum. While the patient was in the emergency department she had a EKG which incidentally showed atrial fibrillation and thus, I was consulted. The patient is currently asymptomatic and is actually back in sinus rhythm by telemetry. She denies any current palpitations, chest pain, shortness of breath, lightheadedness or dizziness. Upon discussing the situation with her she does now realize she was having intermittent palpitations that she did notice yesterday in the emergency department while she was in atrial fibrillation but also about once daily over the last couple of years. Again, currently she is asymptomatic and hoping to be discharged home. PAST MEDICAL HISTORY 1. Hypertension. 2. Possible TIA. 3. Colon cancer. 4. Dyslipidemia. 5. Hypothyroidism. CURRENT MEDICATIONS 1. Cardizem 60 mg p.o. q.i.d. 2. Lovenox. 3. Ceftin. 4. Plavix 75 mg daily. 5. Pravachol 20 mg daily. ALLERGIES NO KNOWN DRUG ALLERGIES. PHYSICAL EXAMINATION VITAL SIGNS: Afebrile, pulse 68, respiratory rate 18, BP 131/76, sating 93%. GENERAL: A pleasant well-appearing woman, in no distress. NECK: No JVD. LUNGS: Clear to auscultation bilaterally. CARDIOVASCULAR: Regular rate and rhythm. No significant murmurs appreciated. Perhaps a 1-2/6 flow murmur is heard likely from aortic sclerosis. ABDOMEN: Abdomen is benign. EXTREMITIES: No edema. LABORATORY DATA White count 6.2, hematocrit 34.8, platelets 187. Sodium 142, potassium 3.7, chloride ___ bicarb 24.5, BUN 9, creatinine 0.77, cardiac enzymes are negative x two. EKG On admission showed a rate-controlled atrial fibrillation at 77 beats per minute and current telemetry shows sinus rhythm. IMPRESSION 1. Paroxysmal atrial fibrillation. The patient has newly discovered paroxysmal atrial fibrillation. Her CHADS vas score is at least 4 for age, gender and hypertension and there is also the possibility that she has had a TIA which would raise it even further. Thus, I believe she requires full anticoagulation. I will change her Plavix to low dose Eliquis due to her low body weight and advanced age. She does have a history of rectal bleeding, but she tells me this is relatively minor even when on Plavix but her suitability for anticoagulation will need to be continuously reevaluated based on her past medical history and any recurrent bleeding. From my standpoint she is clinically stable and all related studies regarding her atrial fibrillation such as an echo and Holter can be done as an outpatient. I will change her Cardizem to long-acting and start Eliquis as above with the discontinuation of Plavix. Thank you again for the opportunity to participate in this patient's care. MD FAUSTINA Arias/ZANE /7:44 AM /7:58 AM
[2016-09-09] MEDS ORDERED: DILTIAZEM-CD 240 MG CAP ER PO SCH (09:00)
[2016-09-09] MEDS ORDERED: APIXABAN 2.5 MG TABLET PO SCH (09:00)
--- NOTE | 2016-09-09 10:26 | HHI.PR ---
Subjective Remarks Patient seen and evaluated today in follow-up for discharge planning and for atrial fibrillation. Patient now says she's had atrial fibrillation in the past and has been [facility]. Consult appreciated today. Rate is controlled on oral medications and patient has no further bleeding. Negative cultures in the urine cultures are noted Objective Vitals Vital Signs Date Time Temp Pulse Resp B/P Pulse Ox O2 Delivery O2 Flow Rate FiO2 09/09/16 08:00 97.9 66 16 141/69 95 09/09/16 04:00 96.7 68 18 131/76 93 09/09/16 00:00 98.0 69 18 122/62 97 09/08/16 20:00 97.7 62 21 125/65 97 09/08/16 20:00 58 09/08/16 18:16 97.8 66 18 117/58 95 09/08/16 13:12 86 120/84 09/08/16 12:43 92 115/77 09/08/16 12:06 102 108/68 09/08/16 12:00 97.7 80 20 115/80 95 09/08/16 11:46 116/66 I/O 09/08/16 09/08/16 09/08/16 09/09/16 09/09/16 09/09/16 07:00 15:00 23:00 07:00 15:00 23:00 Intake Total 360 ml 240 ml Balance 360 ml 240 ml Intake Oral 360 ml 240 ml # Voids 6 5 1 # Bowel Movements 3 0 Result Diagram: 09/09/16 0600 09/08/16 0705 Objective Remarks GENERAL: This is a well-nourished, well-developed patient, in no apparent distress. CARDIOVASCULAR: Sinus rhythm without murmurs, gallops, or rubs. RESPIRATORY: Clear to auscultation. Breath sounds equal bilaterally. No wheezes , rales, or rhonchi. GASTROINTESTINAL: Abdomen soft, non-tender, nondistended. Normal active bowel sounds MUSCULOSKELETAL: Extremities without clubbing, cyanosis, or edema. NEURO: Alert & Oriented x4 to person, place, time, situation. Moves all ext x4 A/P Problem List: (1) Fecal impaction in rectum ICD Code: K56.41 Status: Resolved Plan: Resolved (2) Rectal bleeding ICD Code: K62.5 Status: Resolved Plan: No evidence of bleeding on exam at this time, hemoglobin stable. Patient need outpatient flexible sigmoidoscopy per colorectal (3) UTI (urinary tract infection) ICD Code: N39.0 Status: Acute Plan: Empiric antibiotics have been given. GNR Cont ceftin (4) Atrial fibrillation ICD Code: I48.91 Status: Acute Plan: Continue with PO sergo Stallworth, cardio consult apprecicated now admits prior episodes Discharge Planning Discussed with patient, RN, Son by telephone Belia Bland MD Sep 09, 2016 10:26
[2016-09-09] MEDS ORDERED: APIX2.5T PO (10:27)
[2016-09-09] MEDS ORDERED: CARD240C6 PO (10:27)
--- NOTE | 2016-09-09 10:30 | HHI.DS ---
anay castorena Discharge Summary Admission Date Sep 08, 2016 at 11:07 Discharge Date: Sep 09, 2016 Admitting Diagnosis rectal bleed, rectal pain, constipation, fecal impaction, rectal can (1) Fecal impaction in rectum ICD Code: K56.41 (2) Rectal bleeding ICD Code: K62.5 (3) UTI (urinary tract infection) ICD Code: N39.0 Diagnosis: Principal (4) Atrial fibrillation ICD Code: I48.91 Diagnosis: Principal Procedures echo pending Brief History - From Admission This is a pleasant 85-year-old female with past medical history of rectal cancer status post partial removal of her rectum years ago with Dr. Baires who presents with a five-day history of constipation. The patient states that over the past year she has had cycles of loose stools followed by constipation. She is complaining of some rectal pain. Apparently she had a small amount of bright red blood from her rectum last night. The patient had abdominal x-ray in the emergency department showing normal gas pattern. Guaiac was positive for blood per rectum and she was noted to have a fecal impaction on rectal exam. The patient was given magnesium citrate and this morning is having copious loose bowel movements. She states that she still has pain in the rectum as well as some mild abdominal cramping prior to bowel movements but denies any further bleeding. Hemoglobin is stable this morning. The patient denies any recent weight loss, abdominal pain nausea or vomiting. CBC/BMP: 09/09/16 0600 09/08/16 0705 Significant Findings Laboratory Tests Test 09/07/16 09/07/16 09/08/16 09/09/16 05:40 15:20 07:05 06:00 Red Blood Count 3.79 MIL/MM3 3.78 MIL/MM3 (4.00-5.30) (4.00-5.30) Neutrophils (%) (Auto) 85.1 % 78.4 % 73.1 % (16.0-70.0) (16.0-70.0) (16.0-70.0) Lymphocytes (%) (Auto) 7.7 % (9.0-44.0) Neutrophils # (Auto) 8.4 TH/MM3 (1.8-7.7) Lymphocytes # (Auto) 0.8 TH/MM3 0.9 TH/MM3 (1.0-4.8) (1.0-4.8) Potassium Level 3.2 MEQ/L (3.5-5.1) Chloride Level 110 MEQ/L (98-107) Estimat Glomerular Filtration 77 ML/MIN (>89) 71 ML/MIN (>89) Rate Calcium Level 8.4 MG/DL (8.5-10.1) Urine Turbidity CLOUDY (CLEAR) Urine Protein 100 mg/dL (NEG-TRACE) Urine Occult Blood LARGE (NEG) Urine Leukocyte Esterase LARGE (NEG) Urine RBC 4-9 /hpf (0-3) Urine WBC INNUM /hpf (0-5) Urine Bacteria MANY /hpf (NONE) Hemoglobin 11.4 GM/DL (11.6-15.3) Hematocrit 34.8 % (35.0-46.0) Imaging Last Impressions Chest X-Ray 09/08/16 0000 Signed Impressions: Service Date/Time: Thursday, September 08, 2016 15:32 - CONCLUSION: No acute disease. Jason Paz MD FACR Abdomen X-Ray 09/06/16 0431 Signed Impressions: Service Date/Time: Tuesday, September 06, 2016 04:47 - CONCLUSION: Negative abdominal series. An acute abnormality is not seen. There is chronic change described above. Bright Casarez MD PE at Discharge GENERAL: This is a well-nourished, well-developed patient, in no apparent distress. CARDIOVASCULAR: Sinus rhythm without murmurs, gallops, or rubs. RESPIRATORY: Clear to auscultation. Breath sounds equal bilaterally. No wheezes , rales, or rhonchi. GASTROINTESTINAL: Abdomen soft, non-tender, nondistended. Normal active bowel sounds MUSCULOSKELETAL: Extremities without clubbing, cyanosis, or edema. NEURO: Alert & Oriented x4 to person, place, time, situation. Moves all ext x4 Pt update on day of discharge See daily progress note Hospital Course Patient 85 her old female was admitted to the hospital for rectal pain and rectal bleeding. She was seen by colorectal surgeon. No significant bleeding was noted patient had normal counts throughout her hospitalization. Regulation of her for outpatient flexible sigmoidoscopy and stool softener. Patient also had good relief of fecal impaction with bowel regimen. Patient also developed a urinary tract infection prior to admission this was found and treated with antibiotics here. During her hospitalization she was noted to have atrial fibrillation which apparently has a recurrence of a very old problem. She was seen by cardiology recommended to start Eliquis in lieu of her Plavix and Cardizem was started with good results. Patient was in sinus rhythm at the time of discharge Pt Condition on Discharge: Stable Discharge Disposition: Disch w/ Home Health Serv Discharge Time: > 30 minutes Discharge Instructions DIET: Follow Instructions for: As Tolerated, No Restrictions Activities you can perform: Regular-No Restrictions Follow up Referrals: Colorectal Surgery - 2 Weeks with Subhash Baires MD PCP Follow-up - 2-3 Days with Angel Luis Butts MD [facility]/ with [facility] New Medications: Cefuroxime (Ceftin) 500 Mg Tab 500 MG PO BID Infection #14 Ref 0 TAB Magnesium Hydroxide Liq (Milk of Magnesia Liq) 400 Mg/5 Ml Susp 30 ML PO DAILY PRN Bowel Management #30 Ref 1 BOTTLE Apixaban (Eliquis) 2.5 Mg Tab 2.5 MG PO BID afib #31 TAB Diltiazem CD 24 HR (Cardizem CD 24 HR) 240 Mg Caper 240 MG PO DAILY afib #31 CAP Continued Medications: Albuterol 18 GM Inh (Ventolin Hfa 18 GM Inh) 90 Mcg/Act Aer 2 PUFF INH Q4-6H PRN SHORTNESS OF BREATH #1 Ref 0 INHALER Amlodipine (Amlodipine) 5 Mg Tab 5 MG PO DAILY Blood Pressure Management #30 Ref 0 TAB Ascorbic Acid (Vitamin C) 500 Mg Cap 500 MG PO Nutritional Supplement Ref 0 CAP Levothyroxine (Levothyroxine) 75 Mcg Tab 75 MCG PO DAILY Thyroid #30 Ref 0 TAB Multiple Vitamins W/ Minerals (Centrum) 1 Tab 1 TAB PO DAILY Nutritional Supplement Ref 0 TAB Pravastatin (Pravastatin) 20 Mg Tab 20 MG PO DAILY Cholesterol Management #30 Ref 0 TAB Discontinued Medications: Clopidogrel (Plavix) 75 Mg Tab 75 MG PO DAILY Blood Clot Prevention #30 Ref 0 TAB Belia Freed MD Sep 09, 2016 10:30
--- NOTE | 2016-09-09 16:03 | EC ---
Study Study Date:09/09/2016 STUDY CONCLUSIONS SUMMARY - Left ventricle: The cavity size was normal. Systolic function was normal. The estimated ejection fraction was in the range of 55% to 60%. Wall motion was normal; there were no regional wall motion abnormalities. Doppler parameters are consistent with abnormal left ventricular relaxation (grade 1 diastolic dysfunction). - Aortic valve: Mild regurgitation. - Mitral valve: Mild to moderate regurgitation. - Tricuspid valve: Moderate regurgitation. - Pulmonary arteries: PA peak pressure: 31mm Hg (S). If LV function is below 40, please consider prescribing an ACEI or ARB or document rationale for non-use. PROCEDURE DATA STUDY STATUS: Elective. Procedure: Transthoracic echocardiography. Image quality was good. Scanning was performed from the parasternal, apical, and subcostal acoustic windows. Study completion: The patient tolerated the procedure well. Transthoracic echocardiography. M-mode, complete 2D, complete spectral Doppler, and color Doppler. Patient status: Inpatient. CARDIAC ANATOMY LEFT VENTRICLE: The cavity size was normal. There was no hypertrophy. Systolic function was normal. The estimated ejection fraction was in the range of 55% to 60%. Wall motion was normal; there were no regional wall motion abnormalities. Doppler parameters are consistent with abnormal left ventricular relaxation (grade 1 diastolic dysfunction). AORTIC VALVE: The valve appears to be grossly normal. Doppler: There was no stenosis. Mild regurgitation. MITRAL VALVE: The valve appears to be grossly normal. Doppler: There was no evidence for stenosis. Mild to moderate regurgitation. Mean gradient: 2mm Hg (D). Peak gradient: 6mm Hg (D). RIGHT VENTRICLE: The cavity size was normal. PULMONIC VALVE: Poorly visualized. Doppler: There was no evidence for stenosis. Trace regurgitation. TRICUSPID VALVE: The valve appears to be grossly normal. Doppler: There was no evidence for stenosis. Moderate regurgitation. PERICARDIUM: There was no pericardial effusion. BASIC MEASUREMENTS ADULT Normal Left ventricle LV internal dimension, ED, chordal level, *40.4 mm 43-52 PLAX LV internal dimension, ES, chordal level, 31.2 mm 23-38 PLAX Fractional shortening, chordal level, PLAX *23 % >29 LV posterior wall thickness, ED 6.05 mm IVS/LVPW ratio, ED *1.47 <1.3 Ventricular septum Septal thickness, ED 8.87 mm Aortic valve Leaflet separation 19 mm 15-26 Left atrium Anterior-posterior dimension 31 mm Right ventricle RV internal dimension, ED, PLAX *16.6 mm 19-38 BASIC MEASUREMENTS ADULT Normal Aortic valve Leaflet separation 19 mm 15-26 Aorta Root diameter, ED 34 mm 20-37 DOPPLER MEASUREMENTS ADULT Normal Main pulmonary artery Pressure, S *31 mm Hg =30 Aortic valve Peak velocity, S 131 cm/s VTI, S 37.4 cm Mitral valve Peak E-wave velocity 95.3 cm/s Peak A-wave velocity 118 cm/s Mean velocity, D 67.4 cm/s Mean gradient, D 2 mm Hg Peak gradient, D 6 mm Hg Peak E/A ratio 0.8 Maximal regurgitant velocity 453 cm/s Tricuspid valve Regurgitant peak velocity 253 cm/s Peak RV-RA gradient, S 26 mm Hg Maximal regurgitant velocity 253 cm/s Systemic veins Estimated CVP 5 mm Hg Right ventricle RV pressure, S *31 mm Hg <30 LEGEND: Mean values are shown as u=mean value. Asterisk (*) juarez values outside specified normal range. Prepared and signed by Amadeo Ovalle [id number]
== END 2016-09-09 13:58 | disposition home or self-care (01) | DRG 309 ==
LOC: PHED 01:11 → PHEDA 03:53 → PH3B 05:19 → OBSVTOIN 09-08 11:07
PROVIDERS: ADMIT Hospitalist; ATTEND Hospitalist
DX: I48.0 Paroxysmal atrial fibrillation (principal); K62.5 Hemorrhage of anus and rectum; N39.0 Urinary tract infection, site not specified; I10 Essential (primary) hypertension; K56.41 Fecal impaction; K21.9 Gastro-esophageal reflux disease without esophagitis; E03.9 Hypothyroidism, unspecified; E78.00 Pure hypercholesterolemia, unspecified; Z85.048 Personal history of other malignant neoplasm of rectum, rectosigmoid junction, and anus; H91.90 Unspecified hearing loss, unspecified ear; Z86.718 Personal history of other venous thrombosis and embolism; Z79.02 Long term (current) use of antithrombotics/antiplatelets; Z92.3 Personal history of irradiation; E78.5 Hyperlipidemia, unspecified; Z92.21 Personal history of antineoplastic chemotherapy
CPT/HCPCS: 71010; 74020; 80048; 80053; 81001; 82550; 83690; 83735; 84443; 84484; 85014; 85018; 85025; 85610; 85730; 87077; 87086; 87186; 93005; 93306; 96361; 96374; G0378; G8987-GP; G8988-GP; J0696; J1650; J2405; J7030

== ENCOUNTER 2017-11-25 18:19 | Observation (INO) | payer MEDICARE, OTHER ==
[~2017-11-25] VITALS: Ht 157.5 cm; Wt 39.2 kg
[~2017-11-25 18:19] MED LIST changes: +AMLO5TAB2 PO; -AMLO5TAB22 PO; +APIX2.5T PO; +ASCO500C PO; +CARD240C6 PO; +CEFT500T3 PO; -CLOP75TA PO; -HYDR-3533 PO; -LEVO50TA51 PO; +LEVO75TA3 PO; -LOVA1TAB47 PO; +MILKSUS PO; +MULT-6 PO; -OMEP20CA5 PO; +PRAV20TA2 PO; +VENTAER INH
[2017-11-25 18:23] VITALS: BP 197/79; PULSE 76; RESP 18; TEMP 98.9; O2SAT 96
--- NOTE | 2017-11-25 18:44 | PD ---
HPI Chief Complaint: Bleeding Time Seen by Provider: 18:38 Travel History International Travel<30 days: No Contact w/Intl Traveler<30days: No Traveled to known affect area: No History of Present Illness HPI Patient comes in complaining of intermittent 2-3 week history of bright red blood per rectum. However patient states that she had one episode yesterday and 2 episodes today with large amounts of blood clot without any normal stool in the mix. Son is at the bedside corroborating the patient's history, per patient also she does not feel any abdominal pain or back pain or flank pain associated with these large bloody clots movement. Patient denies any alleviating or aggravating factors. Patient denies any associated factors such as fever, nausea, vomiting, diarrhea, abdominal pain, chest pain, back pain, flank pain, runny nose/cough/sore throat. PCP DR CLARISA ROBIN No known drug allergy Past medical history significant for hypothyroidism, tonsillectomy, corrective lens wearing, leg blood clots/DVTs, used to be on Eliquis which according to her she has already stopped since August 2017 , hypercholesterolemia, hypertension, appendectomy cholecystectomy, hysterectomy, rectal cancer about 17 years ago, renal stent, renal insufficiency, PFSH Past Medical History Hx Anticoagulant Therapy: Yes (STOPPED SEVERAL WEEKS AGO) Arthritis: Yes Autoimmune Disease: No Blood Disorders: No Anxiety: No Depression: No Cancer: Yes (hx rectal ca 17 years ago) Cardiovascular Problems: Yes (BLOOD CLOTS LEGS) High Cholesterol: Yes Chemotherapy: Yes (1995) Chest Pain: No Congestive Heart Failure: No Diminished Hearing: Yes (NOT WITH PT THIS VISIT 09/06/16) Deep Vein Thrombosis: Yes (R GROIN ) Endocrine: Yes (hypothyroid) Gastrointestinal Disorders: Yes GERD: Yes Genitourinary: Yes (STENT LEFT KIDNEY) Hypertension: Yes Immune Disorder: No Implanted Vascular Access Dvce: Yes Musculoskeletal: Yes Neurologic: No Psychiatric: No Reproductive: No Respiratory: No Radiation Therapy: Yes (1995) Sickle Cell Disease: No Thyroid Disease: Yes (HYPO) Menopausal: Yes Past Surgical History Abdominal Surgery: Yes (APPY, CHOLEY) Appendectomy: Yes Body Medical Devices: RENAL STENT Cardiac Surgery: No Cholecystectomy: Yes Genitourinary Surgery: Yes (RENAL STENT, RECTAL CANCER) Gynecologic Surgery: No Hysterectomy: Yes Thoracic Surgery: No Tonsillectomy: Yes Other Surgery: Yes Social History Alcohol Use: No Tobacco Use: No (quit 30 years ago) Substance Use: No Allergies-Medications (Allergen,Severity, Reaction): Coded Allergies: No Known Allergies (Verified Allergy, Unknown, 11/25/17) Reported Meds & Prescriptions Reported Meds & Active Scripts Active Reported Ferrous Fumarate 324 Mg (106 Mg Iron) Tab 325 Mg PO TID Myrbetriq (Mirabegron) 50 Mg Tab 50 Mg PO DAILY Gabapentin 100 Mg Cap 100 Mg PO HS Escitalopram (Escitalopram Oxalate) 10 Mg Tab 10 Mg PO DAILY Carvedilol 6.25 Mg Tab 6.25 Mg PO BID Atorvastatin (Atorvastatin Calcium) 10 Mg Tab 10 Mg PO HS Levothyroxine (Levothyroxine Sodium) 75 Mcg Tab 75 Mcg PO DAILY Review of Systems General / Constitutional: No: Fever Eyes: No: Visual changes HENT: No: Headaches Cardiovascular: No: Chest Pain or Discomfort Respiratory: No: Shortness of Breath Gastrointestinal: Positive: Hematochezia Genitourinary: No: Dysuria Musculoskeletal: No: Pain Skin: No Rash Neurologic: No: Weakness Psychiatric: No: Depression Endocrine: No: Polydipsia Hematologic/Lymphatic: No: Easy Bruising Physical Exam Narrative GENERAL: SKIN: Warm and dry. HEAD: Atraumatic. Normocephalic. EYES: Pupils equal and round. No scleral icterus. No injection or drainage. ENT: No nasal bleeding or discharge. Mucous membranes pink and moist. NECK: Trachea midline. No JVD. CARDIOVASCULAR: Regular rate and rhythm. RESPIRATORY: No accessory muscle use. Clear to auscultation. Breath sounds equal bilaterally. GASTROINTESTINAL: Abdomen soft, non-tender, nondistended. RN at bedside during examination. No evidence of any external hemorrhoids or rectal fissures. The patient had large blood clots in her diaper (approx 200ml of clots only on her diaper), as well as during the examination MUSCULOSKELETAL: Extremities without clubbing, cyanosis, or edema. No obvious deformities. NEUROLOGICAL: Awake and alert. No obvious cranial nerve deficits. Motor grossly within normal limits. Five out of 5 muscle strength in the arms and legs. Normal speech. PSYCHIATRIC: Appropriate mood and affect; insight and judgment normal. Data Data Last Documented VS Vital Signs Date Time Temp Pulse Resp B/P (MAP) Pulse Ox O2 Delivery O2 Flow Rate FiO2 11/25/17 19:10 73 16 164/62 (96) 96 Room Air 11/25/17 18:23 98.9 Orders Orders Complete Blood Count With Diff (11/25/17 18:38) Comprehensive Metabolic Panel (11/25/17 18:38) Lipase (11/25/17 18:38) Prothrombin Time / Inr (Pt) (11/25/17 18:38) Act Partial Throm Time (Ptt) (11/25/17 18:38) Ecg Monitoring (11/25/17 18:38) Iv Access Insert/Monitor (11/25/17 18:38) Oximetry (11/25/17 18:38) Sodium Chloride 0.9% Flush (Ns Flush) (11/25/17 18:45) Type And Screen (11/25/17 19:19) Admit Order (Ed Use Only) (11/25/17 19:41) Labs Laboratory Tests Test 11/25/17 19:05 White Blood Count 4.6 TH/MM3 Red Blood Count 3.48 MIL/MM3 Hemoglobin 10.6 GM/DL Hematocrit 30.8 % Mean Corpuscular Volume 88.6 FL Mean Corpuscular Hemoglobin 30.5 PG Mean Corpuscular Hemoglobin Concent 34.5 % Red Cell Distribution Width 20.1 % Platelet Count 161 TH/MM3 Mean Platelet Volume 10.0 FL Neutrophils (%) (Auto) 68.5 % Lymphocytes (%) (Auto) 17.9 % Monocytes (%) (Auto) 9.0 % Eosinophils (%) (Auto) 2.7 % Basophils (%) (Auto) 1.9 % Neutrophils # (Auto) 3.2 TH/MM3 Lymphocytes # (Auto) 0.8 TH/MM3 Monocytes # (Auto) 0.4 TH/MM3 Eosinophils # (Auto) 0.1 TH/MM3 Basophils # (Auto) 0.1 TH/MM3 CBC Comment DIFF FINAL Differential Comment Prothrombin Time 10.3 SEC Prothromb Time International Ratio 1.0 RATIO Activated Partial Thromboplast Time 26.0 SEC Blood Urea Nitrogen 26 MG/DL Creatinine 0.98 MG/DL Random Glucose 124 MG/DL Total Protein 6.7 GM/DL Albumin 3.4 GM/DL Calcium Level 9.0 MG/DL Alkaline Phosphatase 97 U/L Aspartate Amino Transf (AST/SGOT) 19 U/L Alanine Aminotransferase (ALT/SGPT) 19 U/L Total Bilirubin 0.2 MG/DL Sodium Level 143 MEQ/L Potassium Level 3.6 MEQ/L Chloride Level 109 MEQ/L Carbon Dioxide Level 29.1 MEQ/L Anion Gap 5 MEQ/L Estimat Glomerular Filtration Rate 54 ML/MIN Lipase 328 U/L [facility] Medical Decision Making Medical Screen Exam Complete: Yes Emergency Medical Condition: Yes Medical Record Reviewed: Yes Differential Diagnosis Rectal bleeding versus GI bleed versus rectal fissure versus external hemorrhoids Narrative Course CBC shows no leukocytosis, no left shift, normal platelet count, and mild anemia of 10/30 Coagulation profile is within normal limits Electrolytes are all within normal limits, normal kidney liver and pancreatic functions Blood bank B+ Diagnosis Primary Impression: large rectal bleeding Admitting Information Admitting Physician Requests: Observation Russ Shane MD November 25, 2017 18:44
[2017-11-25] MEDS ORDERED: SODIUM CHLORIDE 0.9% FLUSH 10 ML FLUSH IVF PRN (18:45)
[2017-11-25] MEDS ORDERED: MIRA50TA PO (19:07)
[2017-11-25] MEDS ORDERED: GABA100C4 PO (19:07)
[2017-11-25] MEDS ORDERED: ESCI10TA PO (19:07)
[2017-11-25] MEDS ORDERED: CARV6.252 PO (19:07)
[2017-11-25] MEDS ORDERED: FERR324T8 PO (19:07)
[2017-11-25] MEDS ORDERED: ATOR10TA15 PO (19:07)
[2017-11-25 19:10] VITALS: BP 164/62; PULSE 73; RESP 16; O2SAT 96
[2017-11-25 19:15] LABS: AUTOMATED NEUTROPHIL # 3.2 TH/MM3 (1.8-7.7); BASOPHIL # 0.1 TH/MM3 (0-0.2); BASOPHIL % 1.9 % (0.0-2.0); EOSINOPHIL # 0.1 TH/MM3 (0-0.4); EOSINOPHIL % 2.7 % (0.0-4.0); HEMATOCRIT 30.8 % (35.0-46.0); HEMOGLOBIN 10.6 GM/DL (11.6-15.3); LYMPH % 17.9 % (9.0-44.0); LYMPHOCYTE # 0.8 TH/MM3 (1.0-4.8); MEAN CELL VOLUME 88.6 FL (80.0-100.0); MEAN CORPUSCULAR HEMOGLOBIN 30.5 PG (27.0-34.0); MEAN CORPUSCULAR HGB CONC 34.5 % (32.0-36.0); MONOCYTE # 0.4 TH/MM3 (0-0.9); NEUT % 68.5 % (16.0-70.0); PLATELET COUNT 161 TH/MM3 (150-450); RED BLOOD COUNT 3.48 MIL/MM3 (4.00-5.30); RED CELL DISTRIBUTION WIDTH 20.1 % (11.6-17.2); WHITE BLOOD COUNT 4.6 TH/MM3 (4.0-11.0)
[2017-11-25 19:24] LABS: CHLORIDE 109 MEQ/L (98-107); SODIUM (NA) 143 MEQ/L (136-145)
[2017-11-25 19:28] LABS: ALBUMIN 3.4 GM/DL (3.4-5.0); BICARBONATE 29.1 MEQ/L (21.0-32.0); BLOOD UREA NITROGEN 26 MG/DL (7-18); GLUCOSE,RANDOM 124 MG/DL (74-106)
[2017-11-25 19:29] LABS: PROTHROMBIN TIME - PATIENT 10.3 SEC (9.8-11.6)
[2017-11-25 19:30] LABS: ALT (GPT) 19 U/L (10-53)
[2017-11-25 19:31] LABS: AST (GOT) 19 U/L (15-37); CREATININE 0.98 MG/DL (0.50-1.00); GLOMERULAR FILTRATION RATE 54 ML/MIN (>89)
[2017-11-25 19:32] LABS: TOTAL BILIRUBIN ADULT 0.2 MG/DL (0.2-1.0); TOTAL PROTEIN 6.7 GM/DL (6.4-8.2)
[2017-11-25 19:33] LABS: ALKALINE PHOSPHATASE 97 U/L (45-117)
[2017-11-25 20:35] VITALS: BP 177/67; PULSE 70; RESP 18; O2SAT 96
[2017-11-25] MEDS ORDERED: NALOXONE HCL 0.4 MG/ML AMP IV PUSH PRN (23:15)
[2017-11-25] MEDS ORDERED: PANTOPRAZOLE SODIUM 40 MG VIAL IV PUSH SCH (23:15)
[2017-11-25] MEDS: SODIUM CHLORIDE 0.9% FLUSH 10 ML FLUSH IV FLUSH PRN (23:28)
[2017-11-26] MEDS: SODIUM CHLOR 0.45% 1000 ML INJ 1,000 ML IV SCH ×2 (00:04→13:29)
[2017-11-26 01:18] VITALS: BP 186/82; PULSE 67; RESP 20; TEMP 96.2; O2SAT 94
[2017-11-26 07:28] LABS: CHLORIDE 111 MEQ/L (98-107); SODIUM (NA) 144 MEQ/L (136-145)
[2017-11-26 07:39] LABS: ALBUMIN 3.4 GM/DL (3.4-5.0); BICARBONATE 28.3 MEQ/L (21.0-32.0); BLOOD UREA NITROGEN 17 MG/DL (7-18); CALCIUM 9.1 MG/DL (8.5-10.1); GLUCOSE,RANDOM 82 MG/DL (74-106)
[2017-11-26 07:41] LABS: ALT (GPT) 17 U/L (10-53); AST (GOT) 16 U/L (15-37)
[2017-11-26 07:42] LABS: CREATININE 0.72 MG/DL (0.50-1.00); GLOMERULAR FILTRATION RATE 76 ML/MIN (>89)
[2017-11-26 07:43] LABS: TOTAL BILIRUBIN ADULT 0.4 MG/DL (0.2-1.0); TOTAL PROTEIN 6.4 GM/DL (6.4-8.2)
[2017-11-26 07:44] LABS: ALKALINE PHOSPHATASE 78 U/L (45-117)
[2017-11-26 07:59] VITALS: BP 192/87; PULSE 76; RESP 19; TEMP 97.2; O2SAT 95
[2017-11-26] MEDS: SODIUM CHLORIDE 0.9% FLUSH 10 ML FLUSH IV FLUSH SCH ×2 (08:54→21:32)
[2017-11-26 11:19] LABS: HEMATOCRIT 33.3 % (35.0-46.0); HEMOGLOBIN 10.7 GM/DL (11.6-15.3)
--- NOTE | 2017-11-26 11:35 | HHI.HP ---
HPI Service [facility] Primary Care Physician Unknown Admission Diagnosis LARGE GI BLEED, MILD ANEMIA, HEMODYNAMICALLY STABLE Diagnoses: Chief Complaint: GI bleed Travel History International Travel<30 Days: No Contact w/Intl Traveler <30 Da: No Traveled to Known Affected Are: No History of Present Illness Ptn complains of at least 2 episodes of painless GI bleed over the last [address] Diaz and had Upper gi which showed esophageal stricture, and had cauterization of a bleeding area (10/2017). Ptn loosing weight due to diarrhea over 21 years, but worse over the last few weeks. Patient refused colostomy per her previous evaluation by colorectal surgery for colorectal cancer. Patient did have radiation. Patient has been on a blood thinner past but had some issues with anemia and this was stopped. She has been on iron pills. The patient's family is quite concerned however the patient requests comfort care. I did discuss at length with the patient's family regarding honoring the patient 's wishes. At this point the patient appears to have capacity and decision making. She reports a weight loss. Anemia. And fatigue. In any case gastroneurology consultation was held due to further evaluation for patient's and family planning. Patient may require palliative care eval versus hospice care. Her hemoglobin has remained stable. Review of Systems Constitutional: COMPLAINS OF: Weight loss, DENIES: Diaphoretic episodes, Fatigue, Fever, Weight gain, Chills, Dizziness, Change in appetite, Night Sweats Endocrine: DENIES: Abnorml menstrual pattern, Heat/cold intolerance, Polydipsia , Polyuria, Polyphagia Eyes: DENIES: Blurred vision, Diplopia, Eye inflammation, Eye pain, Vision loss , Photosensitivity, Double Vision Ears, nose, mouth, throat: DENIES: Tinnitus, Hearing loss, Vertigo, Nasal discharge, Oral lesions, Throat pain, Hoarseness, Ear Pain, Running Nose, Epistaxis, Sinus Pain, Toothache, Odynophagia Respiratory: DENIES: Apneas, Cough, Snoring, Wheezing, Hemoptysis, Sputum production, Shortness of breath Cardiovascular: DENIES: Chest pain, Palpitations, Syncope, Dyspnea on Exertion , PND, Lower Extremity Edema, Orthopnea, Claudication Gastrointestinal: COMPLAINS OF: Bloody stools, Diarrhea, DENIES: Abdominal pain , Black stools, Constipation, Nausea, Vomiting, Difficulty Swallowing, Anorexia Genitourinary: DENIES: Abnormal vaginal bleeding, Dysmenorrhea, Dyspareunia, Sexual dysfunction, Urinary frequency, Urinary incontinence, Urgency, Hematuria , Dysuria, Nocturia, Vaginal discharge Musculoskeletal: DENIES: Joint pain, Muscle aches, Stiffness, Joint Swelling, Back pain, Neck pain Integumentary: DENIES: Abnormal pigmentation, Pruritus, Rash, Nail changes, Breast masses, Breast skin changes, Nipple discharge Hematologic/lymphatic: DENIES: Bruising, Lymphadenopathy Immunologic/allergic: DENIES: Eczema, Urticaria Neurologic: DENIES: Abnormal gait, Headache, Localized weakness, Paresthesias, Seizures, Speech Problems, Tremor, Poor Balance Psychiatric: DENIES: Anxiety, Confusion, Mood changes, Depression, Hallucinations, Agitation, Suicidal Ideation, Homicidal Ideation, Delusions Except as stated in HPI: all other systems reviewed are Neg Past Family Social History Past Medical History Hypothyroidism Atrial fibrillation Renal insufficiency History of DVT Past Surgical History Colon/rectal resection Renal stent, left Ectomy Hysterectomy Reported Medications Reviewed in the EMR Allergies: Coded Allergies: No Known Allergies (Verified Allergy, Unknown, 11/25/17) Active Ordered Medications Reviewed in the EMR Family History Mother of pancreatic cancer, father had a brain bleed Social History Lives with her , no tobacco or alcohol dependency Physical Exam Vital Signs Vital Signs Date Time Temp Pulse Resp B/P (MAP) Pulse Ox O2 Delivery O2 Flow Rate FiO2 11/26/17 07:59 97.2 76 19 192/87 (122) 95 11/26/17 01:18 96.2 67 20 186/82 (116) 94 11/25/17 20:40 11/25/17 20:35 70 18 177/67 (103) 96 Room Air 11/25/17 19:10 73 16 164/62 (96) 96 Room Air 11/25/17 18:23 98.9 76 18 197/79 (118) 96 Physical Exam GENERAL: This is a frail female who appears weak SKIN: No rashes, ecchymoses or lesions. Cool and dry. HEAD: Atraumatic. Normocephalic. No temporal or scalp tenderness. EYES: Pupils equal round and reactive. Extraocular motions intact. No scleral icterus. No injection or drainage. ENT: Nose without bleeding, purulent drainage or septal hematoma. Throat without erythema, tonsillar hypertrophy or exudate. Uvula midline. Airway patent. NECK: Trachea midline. No JVD or lymphadenopathy. Supple, nontender, no meningeal signs. CARDIOVASCULAR: Regular rate and rhythm without murmurs, gallops, or rubs. RESPIRATORY: Clear to auscultation. Breath sounds equal bilaterally. No wheezes , rales, or rhonchi. GASTROINTESTINAL: Abdomen soft, non-tender, nondistended. No hepato-splenomegaly , or palpable masses. No guarding. MUSCULOSKELETAL: Extremities without clubbing, cyanosis, or edema. No joint tenderness, effusion, or edema noted. No calf tenderness. Negative Homans sign bilaterally. NEUROLOGICAL: Awake and alert. Cranial nerves II through XII intact. Motor and sensory grossly within normal limits. Five out of 5 muscle strength in all muscle groups. Normal speech. Laboratory Laboratory Tests Test 11/25/17 19:05 11/26/17 06:14 White Blood Count 4.6 Red Blood Count 3.48 Hemoglobin 10.6 Hematocrit 30.8 Mean Corpuscular Volume 88.6 Mean Corpuscular Hemoglobin 30.5 Mean Corpuscular Hemoglobin Concent 34.5 Red Cell Distribution Width 20.1 Platelet Count 161 Mean Platelet Volume 10.0 Neutrophils (%) (Auto) 68.5 Lymphocytes (%) (Auto) 17.9 Monocytes (%) (Auto) 9.0 Eosinophils (%) (Auto) 2.7 Basophils (%) (Auto) 1.9 Neutrophils # (Auto) 3.2 Lymphocytes # (Auto) 0.8 Monocytes # (Auto) 0.4 Eosinophils # (Auto) 0.1 Basophils # (Auto) 0.1 CBC Comment DIFF FINAL Differential Comment Prothrombin Time 10.3 Prothromb Time International Ratio 1.0 Activated Partial Thromboplast Time 26.0 Blood Urea Nitrogen 26 17 Creatinine 0.98 0.72 Random Glucose 124 82 Total Protein 6.7 6.4 Albumin 3.4 3.4 Calcium Level 9.0 9.1 Alkaline Phosphatase 97 78 Aspartate Amino Transf (AST/SGOT) 19 16 Alanine Aminotransferase (ALT/SGPT) 19 17 Total Bilirubin 0.2 0.4 Sodium Level 143 144 Potassium Level 3.6 3.4 Chloride Level 109 111 Carbon Dioxide Level 29.1 28.3 Anion Gap 5 5 Estimat Glomerular Filtration Rate 54 76 Lipase 328 Result Diagram: 11/25/17 1905 11/26/17 0614 Caprini VTE Risk Assessment Capmahnaz VTE Risk Assessment: Mod/High Risk (score >= 2) VTE Pharm Contraindication: Active bleeding Israelrini Risk Assessment Model Point Value = 1 Point Value = 2 Point Value = 3 Point Value = 5 Age 41-60 Minor surgery BMI > 25 kg/m2 Swollen legs Varicose veins or History of unexplained or recurrent spontaneous Oral contraceptives or hormone replacement Sepsis (< 1 month) Serious lung disease, including pneumonia (< 1 month) Abnormal pulmonary function Acute myocardial infarction Congestive heart failure (< 1 month) History of inflammatory bowel disease Medical patient at bed rest Age 61-74 Arthroscopic surgery Major open surgery (> 45 min) Laparoscopic surgery (> 45 min) Malignancy Confined to bed (> 72 hours) Immobilizing plaster cast Central venous access Age >= 75 History of VTE Family history of VTE Factor V Leiden Prothrombin [id number] Lupus anticoagulant Anticardiolipin antibodies Elevated serum homocysteine Heparin-induced thrombocytopenia Other congenital or acquired thrombophilia Stroke (< 1 month) Elective arthroplasty Hip, pelvis, or leg fracture Acute spinal cord injury (< 1 month) Prophylaxis Regimen Total Risk Factor Score Risk Level Prophylaxis Regimen 0-1 Low Early ambulation 2 Moderate Order ONE of the following: *Sequential Compression Device (SCD) *Heparin 5000 units SQ BID 3-4 Higher Order ONE of the following medications: *Heparin 5000 units SQ TID *Enoxaparin/Lovenox 40 mg SQ daily (WT < 150 kg, CrCl > 30 mL/min) *Enoxaparin/Lovenox 30 mg SQ daily (WT < 150 kg, CrCl > 10-29 mL/min) *Enoxaparin/Lovenox 30 mg SQ BID (WT < 150 kg, CrCl > 30 mL/min) AND/OR *Sequential Compression Device (SCD) 5 or more Highest Order ONE of the following medications: *Heparin 5000 units SQ TID (Preferred with Epidurals) *Enoxaparin/Lovenox 40 mg SQ daily (WT < 150 kg, CrCl > 30 mL/min) *Enoxaparin/Lovenox 30 mg SQ daily (WT < 150 kg, CrCl > 10-29 mL/min) *Enoxaparin/Lovenox 30 mg SQ BID (WT < 150 kg, CrCl > 30 mL/min) AND *Sequential Compression Device (SCD) Assessment and Plan Problem List: (1) Rectal bleeding ICD Code: K62.5 - Hemorrhage of anus and rectum Status: Resolved Plan: Patient with a history of multiple episodes of GI bleeding. This point patient does not want any aggressive workup done. She would like comfort care measures. Her daughter would like to discuss this further with her mother. Will defer gastroenterology/colorectal surgery eval at this time due to patient' s wishes. She did have upper GI 10/2017 which did show some gastritis and she had some cauterization as well as a stricture evaluation. Records are unavailable and this is reported by the daughter who is her primary caregiver. We will continue to follow hemoglobin. Monitor the patient's vital signs. Follow-up CT abdomen pelvis (2) Atrial fibrillation ICD Code: I48.91 - Unspecified atrial fibrillation Status: Acute Plan: Patient off blood thinners due to recurrent bleeding. No current arrhythmias noted. Patient currently stable on Coreg (3) Weight loss ICD Code: R63.4 - Abnormal weight loss Plan: Patient with chronic diarrhea and will benefit from supplementation (4) Malnutrition ICD Code: E46 - Unspecified protein-calorie malnutrition Plan: Appears to be severe malnutrition Patient will benefit from supplementation and calorie counts. Perhaps this is due to her chronic diarrhea Code Status Full code at the moment however patient would like to discuss with her family regarding DO NOT RESUSCITATE status Discussed Condition With Patient, daughter AbdiazizBelia Rosenthal MD November 26, 2017 11:34
[2017-11-26 12:00] VITALS: BP 187/76; PULSE 72; RESP 20; TEMP 97.8; O2SAT 95
[2017-11-26] MEDS: TOLTERODINE TARTRATE 4 MG CAP LA PO SCH (13:00)
[2017-11-26] MEDS: FERROUS FUMARATE 325 MG TAB (106 MG ELEMENTAL IRON) PO SCH ×2 (13:13→17:32)
[2017-11-26] MEDS: CARVEDILOL 6.25 MG TAB PO SCH ×2 (13:13→21:32)
[2017-11-26] MEDS: LEVOTHYROXINE SODIUM 75 MCG TAB PO SCH (13:14)
[2017-11-26] MEDS: ESCITALOPRAM OXALATE 10 MG TAB PO SCH (13:14)
[2017-11-26] MEDS: PANTOPRAZOLE SOD 40 MG DELAYED RELEASE TAB PO SCH ×2 (13:14→21:32)
--- NOTE | 2017-11-26 14:07 | PD.CONS ---
HPI History of Present Illness This is a 87 year old female who was admitted to the hospital with history of rectal bleeding. Limited history available from the patient who is a poor historian. No family by her bedside. She describes having bright red blood per rectum associated with loose stools off and on for several months. She also reports anorexia and weight loss. She denies any heartburn dysphagia nausea vomiting hematemesis melena jaundice ascites edema. PFSH Past Medical History Hypothyroidism Atrial fibrillation Renal insufficiency History of DVT Past Surgical History Colon/rectal resection Renal stent, left Ectomy Hysterectomy Coded Allergies: No Known Allergies (Verified Allergy, Unknown, 11/25/17) Medications As per the nursing notes Family History Mother of pancreatic cancer, father had a brain bleed Social History Lives with her , no tobacco or alcohol dependency Review of Systems Constitutional: COMPLAINS OF: Weight loss Gastrointestinal: COMPLAINS OF: Bloody stools, Diarrhea, Anorexia GI Exam Vitals I&O Vital Signs Date Time Temp Pulse Resp B/P (MAP) Pulse Ox O2 Delivery O2 Flow Rate FiO2 11/26/17 12:00 97.8 72 20 187/76 (113) 95 11/26/17 07:59 97.2 76 19 192/87 (122) 95 11/26/17 01:18 96.2 67 20 186/82 (116) 94 11/25/17 20:40 11/25/17 20:35 70 18 177/67 (103) 96 Room Air 11/25/17 19:10 73 16 164/62 (96) 96 Room Air 11/25/17 18:23 98.9 76 18 197/79 (118) 96 I/O 11/25/17 11/25/17 11/25/17 11/26/17 11/26/17 11/26/17 07:00 15:00 23:00 07:00 15:00 23:00 Intake Total 450 ml Balance 450 ml Intake Oral 0 ml IV Total 450 ml # Voids 3 # Bowel Movements 1 Laboratory Test 11/25/17 19:05 11/26/17 06:14 White Blood Count 4.6 TH/MM3 Red Blood Count 3.48 MIL/MM3 Hemoglobin 10.6 GM/DL 10.7 GM/DL Hematocrit 30.8 % 33.3 % Mean Corpuscular Volume 88.6 FL Mean Corpuscular Hemoglobin 30.5 PG Mean Corpuscular Hemoglobin Concent 34.5 % Red Cell Distribution Width 20.1 % Platelet Count 161 TH/MM3 Mean Platelet Volume 10.0 FL Neutrophils (%) (Auto) 68.5 % Lymphocytes (%) (Auto) 17.9 % Monocytes (%) (Auto) 9.0 % Eosinophils (%) (Auto) 2.7 % Basophils (%) (Auto) 1.9 % Neutrophils # (Auto) 3.2 TH/MM3 Lymphocytes # (Auto) 0.8 TH/MM3 Monocytes # (Auto) 0.4 TH/MM3 Eosinophils # (Auto) 0.1 TH/MM3 Basophils # (Auto) 0.1 TH/MM3 CBC Comment DIFF FINAL Differential Comment Prothrombin Time 10.3 SEC Prothromb Time International Ratio 1.0 RATIO Activated Partial Thromboplast Time 26.0 SEC Blood Urea Nitrogen 26 MG/DL 17 MG/DL Creatinine 0.98 MG/DL 0.72 MG/DL Random Glucose 124 MG/DL 82 MG/DL Total Protein 6.7 GM/DL 6.4 GM/DL Albumin 3.4 GM/DL 3.4 GM/DL Calcium Level 9.0 MG/DL 9.1 MG/DL Alkaline Phosphatase 97 U/L 78 U/L Aspartate Amino Transf (AST/SGOT) 19 U/L 16 U/L Alanine Aminotransferase (ALT/SGPT) 19 U/L 17 U/L Total Bilirubin 0.2 MG/DL 0.4 MG/DL Sodium Level 143 MEQ/L 144 MEQ/L Potassium Level 3.6 MEQ/L 3.4 MEQ/L Chloride Level 109 MEQ/L 111 MEQ/L Carbon Dioxide Level 29.1 MEQ/L 28.3 MEQ/L Anion Gap 5 MEQ/L 5 MEQ/L Estimat Glomerular Filtration Rate 54 ML/MIN 76 ML/MIN Lipase 328 U/L Physical Examination Patient is an elderly woman who is in very poor health. Obvious generalized muscle atrophy. HEENT: Pupils round and reactive to light; normocephalic; atraumatic; no jaundice. Throat is clear. NECK: Neck is supple, no JVD, no lymphadenopathy. CHEST: Chest is clear to auscultation and percussion. CARDIAC: Rate and rhythm is regular. Ejection systolic murmur grade 2/ 6 heard over the precordium ABDOMEN: Soft, nondistended, nontender; no hepatosplenomegaly; bowel sounds are present in all four quadrants. EXTREMITIES: No clubbing, cyanosis, or edema. SKIN: Normal; no rash; no jaundice. SENIOR PROJECT COORDINATOR: No focal deficits; alert and oriented times three. Assessment and Plan Assessment: (1) Rectal bleeding ICD Codes: K62.5 - Hemorrhage of anus and rectum Status: Resolved (2) Weight loss ICD Codes: R63.4 - Abnormal weight loss (3) Fecal impaction in rectum ICD Codes: K56.41 - Fecal impaction Status: Resolved Plan 1. Patient requires monitoring of serial hemoglobin and hematocrit levels, supportive treatment, CT scan of the abdomen and pelvis and a colonoscopy. However she wants only comfort and palliative care. The family also want to go with patient's wishes. Discussed with Dr. Freed. Will be available to continue care in case the patient decides to undergo further investigation Sorin Lee MD November 26, 2017 14:07
[2017-11-26] MEDS ORDERED: DIATRIZOATE MEGLUM/DIATRIZOATE SOD 9 ML CUP PO ONE (14:45)
[2017-11-26 16:00] VITALS: BP 150/66; PULSE 70; RESP 20; TEMP 96.9; O2SAT 95
[2017-11-26] MEDS ORDERED: IOHEXOL 350 MG/ML 10 ML VIAL (for RAD DIAG) IVCONTRAST ONE (19:52)
[2017-11-26 20:00] VITALS: BP 165/74; PULSE 69; RESP 15; TEMP 96.6; O2SAT 95
--- NOTE | 2017-11-26 20:01 | RADRPT ---
EXAM DATE/TIME: 11/26/2017 19:29 [place] COMPARISON: No previous studies available for comparison. INDICATIONS : Blood in stool. IV CONTRAST: 75 cc Omnipaque 350 (iohexol) IV ORAL CONTRAST: Prescribed oral contrast ingested. RADIATION DOSE: 4.74 CTDIvol (mGy) MEDICAL HISTORY : Hypothyroidism. Deep venous thrombosis. Carcinoma, rectal.hypertension. SURGICAL HISTORY : Hysterectomy. Appendectomy.Cholecystectomy.Right renal stent. ENCOUNTER: Initial ACUITY: 2 weeks PAIN SCALE: 0/10 LOCATION: pelvis TECHNIQUE: Volumetric scanning of the abdomen and pelvis was performed. Using automated exposure control and ad justment of the mA and/or kV according to patient size, radiation dose was kept as low as reasonably achievable to obtain optimal diagnostic quality images. DICOM format image data is available electro nically for review and comparison. FINDINGS: LOWER LUNGS: The visualized lower lungs are clear. LIVER: Homogeneous density without lesion. There is mild dilation of the biliary tree. No gallbladder, trey gically removed.. SPLEEN: Normal size without lesion. PANCREAS: Within normal limits. KIDNEYS: Normal in size and shape. There is no mass, stone or hydronephrosis. ADRENAL GLANDS: Within normal limits. VASCULAR: There is no aortic aneurysm. BOWEL/MESENTERY: The stomach, small bowel, and colon demonstrate no acute abnormality. There is no free intraperitone al air or fluid. There is scattered diverticulosis of the descending and sigmoid colon without inflam matory changes. There is stool throughout the colon. ABDOMINAL WALL: Within normal limits. RETROPERITONEUM: There is no lymphadenopathy. BLADDER: No wall thickening or mass. REPRODUCTIVE: There is a well-defined left adnexal cyst measuring 4 cm x 3.7 cm. No definite pelvic masses. No free fluid. INGUINAL: There is no lymphadenopathy or hernia. MUSCULOSKELETAL: Diffuse primary bony degenerative changes. A scoliosis with curvature of the lumbar spine to the righ t. CONCLUSION: 1. Status post cholecystectomy with some mild dilatation of the biliary system. This is most likely r eservoir effect. Recommend correlation with liver laboratory values. 2. Scattered diverticulosis of the descending and sigmoid colon without inflammatory changes. 3. Left adnexal cyst measuring 4.0 cm. 4. 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 Deni Barnett MD on November 26, 2017 at 19:54 Board Certified Radiologist. This report was verified electronically.
[2017-11-26] MEDS: ATORVASTATIN 10 MG TAB PO SCH (21:32)
[2017-11-26] MEDS: GABAPENTIN 100 MG CAP PO SCH (21:32)
[2017-11-27] MEDS: SODIUM CHLOR 0.45% 1000 ML INJ 1,000 ML IV SCH ×2 (01:47→15:07)
[2017-11-27] MEDS: ESCITALOPRAM OXALATE 10 MG TAB PO SCH (05:51)
[2017-11-27] MEDS: LEVOTHYROXINE SODIUM 75 MCG TAB PO SCH (05:51)
[2017-11-27 08:00] VITALS: BP 180/74; PULSE 70; RESP 18; TEMP 97.7; O2SAT 95
[2017-11-27] MEDS: SODIUM CHLORIDE 0.9% FLUSH 10 ML FLUSH IV FLUSH SCH ×2 (09:00→21:00)
--- NOTE | 2017-11-27 09:08 | HHI.PR ---
Subjective Remarks Patient seen and evaluated in follow-up for GI bleed. CT abdomen pelvis relatively unremarkable. No further bleeding per patient. Care plan discussed with patient and daughter who now agreed to further evaluation by endoscopy as needed. Objective Vitals Vital Signs Date Time Temp Pulse Resp B/P (MAP) Pulse Ox O2 Delivery O2 Flow Rate FiO2 11/26/17 20:00 96.6 69 15 165/74 (104) 95 11/26/17 16:00 96.9 70 20 150/66 (94) 95 11/26/17 12:00 97.8 72 20 187/76 (113) 95 I/O 11/26/17 11/26/17 11/26/17 11/27/17 11/27/17 11/27/17 07:00 15:00 23:00 07:00 15:00 23:00 Intake Total 450 ml 750 ml 300 ml Output Total 800 ml Balance 450 ml -50 ml 300 ml Intake Oral 0 ml 750 ml 300 ml IV Total 450 ml Output Urine Total 800 ml # Voids 3 3 # Bowel Movements 0 Result Diagram: 11/26/17 0614 11/26/17 0614 Imaging Last Impressions Abdomen/Pelvis CT 11/26/17 0000 Signed Impressions: Service Date/Time: Sunday, November 26, 2017 19:29 - CONCLUSION: 1. Status post cholecystectomy with some mild dilatation of the biliary system. This is most likely reservoir effect. Recommend correlation with liver laboratory values. 2. Scattered diverticulosis of the descending and sigmoid colon without inflammatory changes. 3. Left adnexal cyst measuring 4.0 cm. 4. 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 Deni Barnett MD Objective Remarks GENERAL: This is a well-nourished, well-developed patient, feels much better CARDIOVASCULAR: Regular rate and rhythm without murmurs, gallops, or rubs. RESPIRATORY: Clear to auscultation. Breath sounds equal bilaterally. No wheezes , rales, or rhonchi. GASTROINTESTINAL: Abdomen soft, non-tender, nondistended. Normal active bowel sounds MUSCULOSKELETAL: Extremities without clubbing, cyanosis, or edema. NEURO: Alert & Oriented x4 to person, place, time, situation. Moves all ext x4 A/P Problem List: (1) Rectal bleeding ICD Code: K62.5 - Hemorrhage of anus and rectum Status: Resolved Plan: Patient with a history of multiple episodes of GI bleeding. now agreeable to eval by endoscopy gi recalled ptn sees dr indio grande gi ptn now wants colon endoscopy (2) Atrial fibrillation ICD Code: I48.91 - Unspecified atrial fibrillation Status: Acute Plan: Patient off blood thinners due to recurrent bleeding. No current arrhythmias noted. Patient currently stable on Coreg (3) Weight loss ICD Code: R63.4 - Abnormal weight loss Plan: Patient with chronic diarrhea and will benefit from supplementation (4) Malnutrition ICD Code: E46 - Unspecified protein-calorie malnutrition Plan: Appears to be severe malnutrition Patient will benefit from supplementation and calorie counts. Perhaps this is due to her chronic diarrhea (5) HTN (hypertension) ICD Code: I10 - Essential (primary) hypertension Plan: Add bassam meza coreg Discharge Planning Pending endoscopy Belia Freed MD November 27, 2017 09:08
[2017-11-27] MEDS: PANTOPRAZOLE SOD 40 MG DELAYED RELEASE TAB PO SCH ×2 (09:43→20:28)
[2017-11-27] MEDS: CARVEDILOL 6.25 MG TAB PO SCH ×2 (09:43→20:28)
[2017-11-27] MEDS: FERROUS FUMARATE 325 MG TAB (106 MG ELEMENTAL IRON) PO SCH ×3 (09:43→18:00)
[2017-11-27] MEDS: LOSARTAN 50 MG TAB PO SCH (09:49)
[2017-11-27] MEDS: TOLTERODINE TARTRATE 4 MG CAP LA PO SCH (09:49)
[2017-11-27 12:00] VITALS: BP 165/68; PULSE 76; RESP 20; TEMP 98.9; O2SAT 95
[2017-11-27] MEDS: ACETAMINOPHEN/HYDROcodone 325 MG/5 MG TAB PO PRN ×2 (13:54→20:28)
[2017-11-27 16:00] VITALS: BP 135/63; PULSE 73; RESP 19; TEMP 97.2; O2SAT 95
--- NOTE | 2017-11-27 17:40 | HHI.GIFU ---
GI Follow-up Note Consult Follow-up Subjective: Patient laying in bed comfortably, no new complaints. No bleeding Objective: PHYSICAL EXAMINATION: Vitals signs stable No fever HEENT: Pupils round and reactive to light; normocephalic; atraumatic; no jaundice. Throat is clear. NECK: Neck is supple, no JVD, no lymphadenopathy. CHEST: Chest is clear to auscultation and percussion. CARDIAC: Regular rate and rhythm with no murmur gallop or rubs. ABDOMEN: Soft, nondistended, nontender; no hepatosplenomegaly; bowel sounds are present in all four quadrants. EXTREMITIES: No clubbing, cyanosis, or edema. SKIN: Normal; no rash; no jaundice. RESEARCH NEUROPSYCHOLOGIST: No focal deficits; alert and oriented times three. Available Data (labs, X- Rays, Procedues) : Last Impressions Abdomen/Pelvis CT 11/26/17 0000 Signed Impressions: Service Date/Time: Tuesday, November 26, 2017 19:29 - CONCLUSION: 1. Status post cholecystectomy with some mild dilatation of the biliary system. This is most likely reservoir effect. Recommend correlation with liver laboratory values. 2. Scattered diverticulosis of the descending and sigmoid colon without inflammatory changes. 3. Left adnexal cyst measuring 4.0 cm. 4. 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 Deni Barnett MD Laboratory Tests Test 11/25/17 19:05 11/26/17 06:14 White Blood Count 4.6 TH/MM3 Red Blood Count 3.48 MIL/MM3 Hemoglobin 10.6 GM/DL 10.7 GM/DL Hematocrit 30.8 % 33.3 % Mean Corpuscular Volume 88.6 FL Mean Corpuscular Hemoglobin 30.5 PG Mean Corpuscular Hemoglobin Concent 34.5 % Red Cell Distribution Width 20.1 % Platelet Count 161 TH/MM3 Mean Platelet Volume 10.0 FL Neutrophils (%) (Auto) 68.5 % Lymphocytes (%) (Auto) 17.9 % Monocytes (%) (Auto) 9.0 % Eosinophils (%) (Auto) 2.7 % Basophils (%) (Auto) 1.9 % Neutrophils # (Auto) 3.2 TH/MM3 Lymphocytes # (Auto) 0.8 TH/MM3 Monocytes # (Auto) 0.4 TH/MM3 Eosinophils # (Auto) 0.1 TH/MM3 Basophils # (Auto) 0.1 TH/MM3 CBC Comment DIFF FINAL Differential Comment Prothrombin Time 10.3 SEC Prothromb Time International Ratio 1.0 RATIO Activated Partial Thromboplast Time 26.0 SEC Blood Urea Nitrogen 26 MG/DL 17 MG/DL Creatinine 0.98 MG/DL 0.72 MG/DL Random Glucose 124 MG/DL 82 MG/DL Total Protein 6.7 GM/DL 6.4 GM/DL Albumin 3.4 GM/DL 3.4 GM/DL Calcium Level 9.0 MG/DL 9.1 MG/DL Alkaline Phosphatase 97 U/L 78 U/L Aspartate Amino Transf (AST/SGOT) 19 U/L 16 U/L Alanine Aminotransferase (ALT/SGPT) 19 U/L 17 U/L Total Bilirubin 0.2 MG/DL 0.4 MG/DL Sodium Level 143 MEQ/L 144 MEQ/L Potassium Level 3.6 MEQ/L 3.4 MEQ/L Chloride Level 109 MEQ/L 111 MEQ/L Carbon Dioxide Level 29.1 MEQ/L 28.3 MEQ/L Anion Gap 5 MEQ/L 5 MEQ/L Estimat Glomerular Filtration Rate 54 ML/MIN 76 ML/MIN Lipase 328 U/L Allergies Coded Allergies Type Severity Reaction Last Updated Verified No Known Allergies Allergy Unknown 11/25/17 Yes Active Scripts Medications Dose Route/Sig Max Daily Dose Days Date Category Ferrous Fumarate 324 Mg (106 Mg Iron) Tab 325 Mg PO TID 11/25/17 Reported Myrbetriq (Mirabegron) 50 Mg Tab 50 Mg PO DAILY 11/25/17 Reported Gabapentin 100 Mg Cap 100 Mg PO HS 11/25/17 Reported Escitalopram (Escitalopram Oxalate) 10 Mg Tab 10 Mg PO DAILY 11/25/17 Reported Carvedilol 6.25 Mg Tab 6.25 Mg PO BID 11/25/17 Reported Atorvastatin (Atorvastatin Calcium) 10 Mg Tab 10 Mg PO HS 11/25/17 Reported Levothyroxine (Levothyroxine Sodium) 75 Mcg Tab 75 Mcg PO DAILY 09/06/16 Reported ASSESSMENT/PLAN: Seen and examined with family. No bleeding reported. Last colonoscopy 3-4 years ago. Last egd [address] Hernandez. Colonoscopy with sera tomorrow. It was a pleasure seeing Franchesca Jett. Thank you for this consult. Entered by: Ricardo Carrasco MD November 27, 2017 17:40
[2017-11-27] MEDS ORDERED: PEG (High)/E-LYTE SOLN 4000 ML BTL PO ONE (17:45)
[2017-11-27 18:50] LABS: HEMATOCRIT 31.6 % (35.0-46.0); HEMOGLOBIN 10.3 GM/DL (11.6-15.3)
[2017-11-27 20:00] VITALS: BP 139/65; PULSE 93; RESP 18; TEMP 97.3; O2SAT 94
[2017-11-27] MEDS: GABAPENTIN 100 MG CAP PO SCH (20:27)
[2017-11-27] MEDS: ATORVASTATIN 10 MG TAB PO SCH (20:28)
[2017-11-28] VITALS: BP 190/83; PULSE 119; RESP 20; TEMP 97.5; O2SAT 94
[2017-11-28 02:30] LABS: HEMATOCRIT 33.6 % (35.0-46.0); HEMOGLOBIN 10.6 GM/DL (11.6-15.3)
[2017-11-28] MEDS: ACETAMINOPHEN/HYDROcodone 325 MG/5 MG TAB PO PRN (05:39)
[2017-11-28] MEDS: SODIUM CHLORIDE 0.9% FLUSH 10 ML FLUSH IV FLUSH PRN (05:39)
[2017-11-28] MEDS: LEVOTHYROXINE SODIUM 75 MCG TAB PO SCH (05:39)
[2017-11-28] MEDS: SODIUM CHLOR 0.45% 1000 ML INJ 1,000 ML IV SCH ×3 (05:39→17:47)
[2017-11-28] MEDS: ESCITALOPRAM OXALATE 10 MG TAB PO SCH (05:40)
[2017-11-28 08:00] VITALS: BP 138/63; PULSE 75; RESP 18; TEMP 97; O2SAT 94
[2017-11-28] MEDS: SODIUM CHLORIDE 0.9% FLUSH 10 ML FLUSH IV FLUSH SCH ×2 (09:00→21:02)
[2017-11-28] MEDS: TOLTERODINE TARTRATE 4 MG CAP LA PO SCH (09:15)
[2017-11-28] MEDS: CARVEDILOL 6.25 MG TAB PO SCH ×2 (09:15→21:03)
[2017-11-28] MEDS: FERROUS FUMARATE 325 MG TAB (106 MG ELEMENTAL IRON) PO SCH ×3 (09:16→18:32)
[2017-11-28] MEDS: LOSARTAN 50 MG TAB PO SCH (09:16)
[2017-11-28] MEDS: PANTOPRAZOLE SOD 40 MG DELAYED RELEASE TAB PO SCH ×2 (09:16→21:02)
[2017-11-28 12:00] VITALS: BP 162/67; PULSE 63; RESP 18; TEMP 97; O2SAT 94
--- NOTE | 2017-11-28 12:24 | HHI.PR ---
Subjective Remarks Patient is seen today in follow-up for GI bleed. Hemoglobin remained stable. No new events. Some evidence of bleeding today per nursing team Patient for endoscopy this afternoon Objective Vitals Vital Signs Date Time Temp Pulse Resp B/P (MAP) Pulse Ox O2 Delivery O2 Flow Rate FiO2 11/28/17 12:00 97.0 63 18 162/67 (98) 94 11/28/17 08:00 97.0 75 18 138/63 (88) 94 11/28/17 06:39 20 11/28/17 00:00 97.5 119 20 190/83 (118) 94 11/27/17 20:00 97.3 93 18 139/65 (89) 94 11/27/17 16:00 97.2 73 19 135/63 (87) 95 I/O 11/27/17 11/27/17 11/27/17 11/28/17 11/28/17 11/28/17 06:59 14:59 22:59 06:59 14:59 22:59 Intake Total 300 ml 120 ml 842 ml Balance 300 ml 120 ml 842 ml Intake Oral 300 ml 120 ml IV Total 842 ml # Voids 3 2 # Bowel Movements 11 Result Diagram: 11/28/17 0150 11/26/17 0614 Objective Remarks GENERAL: This is a well-nourished, well-developed patient, feels much better CARDIOVASCULAR: Regular rate and rhythm without murmurs, gallops, or rubs. RESPIRATORY: Clear to auscultation. Breath sounds equal bilaterally. No wheezes , rales, or rhonchi. GASTROINTESTINAL: Abdomen soft, non-tender, nondistended. Normal active bowel sounds MUSCULOSKELETAL: Extremities without clubbing, cyanosis, or edema. NEURO: Alert & Oriented x4 to person, place, time, situation. Moves all ext x4 A/P Problem List: (1) Rectal bleeding ICD Code: K62.5 - Hemorrhage of anus and rectum Status: Resolved Plan: Patient with a history of multiple episodes of GI bleeding. endoscopy this pm (2) Atrial fibrillation ICD Code: I48.91 - Unspecified atrial fibrillation Status: Acute Plan: controlled, Patient off blood thinners due to recurrent bleeding. No current arrhythmias noted. Patient currently stable on Coreg (3) Weight loss ICD Code: R63.4 - Abnormal weight loss Plan: Patient with chronic diarrhea and will benefit from supplementation severe malnutrition (4) Malnutrition ICD Code: E46 - Unspecified protein-calorie malnutrition Plan: Appears to be severe malnutrition Patient will benefit from supplementation and calorie counts. Perhaps this is due to her chronic diarrhea (5) HTN (hypertension) ICD Code: I10 - Essential (primary) hypertension Plan: controlled on cozaar, cont coreg Discharge Planning Pending endoscopy Belia Freed MD November 28, 2017 12:23
--- NOTE | 2017-11-28 13:44 | HHI.FF ---
Face to Face Verification Diagnosis: (1) HTN (hypertension) (2) Malnutrition (3) Weight loss Physical Therapy Order: Evaluate and Treat, Improve ambulation Occupational Therapy Order: Evaluate and Treat, Improve ADL Home Health Nursing Order: Medical education I have seen patient Franchesca Jett on 11/28/17. My clinical findings support the need for the requested home health care services because: Deconditioned w/ increased weakness I certify that my clinical findings support that this patient is homebound because: Unsteady gait/balance Belia Freed MD November 28, 2017 13:44
[2017-11-28 14:55] VITALS: BP 162/67; PULSE 63; RESP 18; TEMP 97; O2SAT 94
[2017-11-28] MEDS ORDERED: SODIUM CHLORID 0.9% 500 ML IV PRN (15:00)
[2017-11-28] MEDS ORDERED: METOPROLOL TARTRATE 25 MG TAB PO PRN (15:00)
[2017-11-28] MEDS ORDERED: POVIDONE IODINE 5% (ANTISEPSIS KIT) 4 APPLICATIONS EACH NARE PRN (15:00)
[2017-11-28] MEDS ORDERED: CHLORHEXIDINE GLUCONATE 2 % 1 PACK (2 CLOTHS) TOPICAL PRN (15:00)
[2017-11-28] MEDS ORDERED: LACTATED RINGER'S 1000 ML IV PRN (15:00)
[2017-11-28] MEDS ORDERED: PROPOFOL 200 MG/20 ML AMP ONE (16:34)
--- NOTE | 2017-11-28 17:04 | GIPROC ---
[facility] [address] [place] [address], [id number] COLONOSCOPY PROCEDURE REPORT EXAM DATE: 11/28/2017 PATIENT NAME: Franchesca Jett MR #: [id number] BIRTHDATE: 1930 ENDOSCOPIST: Ricardo Joyner MD ORDER #: [id number] [employer] TEAM LEAD: Parish Campbell STATUS: inpatient INDICATIONS: The patient is a 87 yr old female here for a colonoscopy due to iron deficiency anemia and hematochezia PROCEDURE PERFORMED: Colonoscopy, diagnostic MEDICATIONS: None and Per Anesthesia. PREP QUALITY: The Reagan Bowel Prep Score was Right colon 1, Mid colon 2, and Left colon 2. Total = 5. PREP TYPE:GoLytely ESTIMATED BLOOD LOSS: None CONSENT: The patient understands the risks and benefits of the procedure and understands that these risks include, but are not limited to: sedation, allergic reaction, infection, perforation and/or bleeding. Alternative means of evaluation and treatment include, among others: physical exam, x-rays, and/or surgical intervention. The patient elects to proceed with this endoscopic procedure. medical equipment was checked for proper function. Hand hygiene and appropriate measures for infection prevention was taken. After the risks, benefits and alternatives of the procedure were thoroughly explained, Informed consent was verified, confirmed and timeout was successfully executed by the treatment team. A digital exam revealed external hemorrhoids The Pentax [id number] endoscope was introduced through the anus and advanced to the cecum, which was identified by both the appendix and ileocecal valve. The instrument was then slowly withdrawn as the colon was fully examined. COLON FINDINGS: There was severe diverticulosis noted in the sigmoid colon with associated tortuosity and muscular hypertrophy. No bleeding was noted from the diverticulosis. Blood throughout the colon. Very friable mucosa in the rectosigmoid with significant spasticity of the colon. Retroflexed views revealed internal hemorrhoids and Retroflexed views revealed medium internal hemorrhoids The scope was then completely withdrawn from the patient and the procedure terminated. PROCEDURE WITHDRAWAL TIME:10minutes ADVERSE EVENTS: There were no complications. IMPRESSIONS: 1. There was severe diverticulosis noted in the sigmoid colon 2. Blood throughout the colon. Very friable mucosa in the rectosigmoid with significant spasticity of the colon 3. Retroflexed views revealed internal hemorrhoids 4. Retroflexed views revealed medium internal hemorrhoids 5. Revealed external hemorrhoids RECOMMENDATIONS: 1. Continue surveillance 2. Yearly hemoccult 3. High fiber diet 4. No seeds, nuts and popcorn in diet RECALL: Return 3 months Colonoscopy Ricardo Joyner MD eSigned: Ricardo Joyner MD 11/28/2017 5:04 PM cc: PATIENT NAME: Franchesca Jett MR#: [id number]
[2017-11-28 20:22] VITALS: BP 130/68; PULSE 75; RESP 20; TEMP 96.7; O2SAT 92
[2017-11-28] MEDS: GABAPENTIN 100 MG CAP PO SCH (21:02)
[2017-11-28] MEDS: ATORVASTATIN 10 MG TAB PO SCH (21:02)
[2017-11-29 00:26] VITALS: BP 160/80; PULSE 78; RESP 20; TEMP 96.7; O2SAT 91
[2017-11-29] MEDS: SODIUM CHLOR 0.45% 1000 ML INJ 1,000 ML IV SCH (04:17)
[2017-11-29] MEDS: LEVOTHYROXINE SODIUM 75 MCG TAB PO SCH (05:45)
[2017-11-29] MEDS: ESCITALOPRAM OXALATE 10 MG TAB PO SCH (05:45)
[2017-11-29 07:55] VITALS: BP 138/61; PULSE 72; RESP 19; TEMP 98; O2SAT 95
[2017-11-29] MEDS: CARVEDILOL 6.25 MG TAB PO SCH (08:59)
[2017-11-29] MEDS: SODIUM CHLORIDE 0.9% FLUSH 10 ML FLUSH IV FLUSH SCH (08:59)
[2017-11-29] MEDS: TOLTERODINE TARTRATE 4 MG CAP LA PO SCH (08:59)
[2017-11-29] MEDS: LOSARTAN 50 MG TAB PO SCH (08:59)
[2017-11-29] MEDS: ACETAMINOPHEN/HYDROcodone 325 MG/5 MG TAB PO PRN (09:00)
[2017-11-29] MEDS: PANTOPRAZOLE SOD 40 MG DELAYED RELEASE TAB PO SCH (09:00)
[2017-11-29] MEDS: FERROUS FUMARATE 325 MG TAB (106 MG ELEMENTAL IRON) PO SCH ×2 (09:12→13:00)
--- NOTE | 2017-11-29 09:47 | EKG ---
Date Performed: 11/28/2017 Time Performed: 08:35:13 PTAGE: 87 years EKG: Sinus rhythm WITH FIRST DEGREE AV BLOCK ABNORMAL ECG Compared to PREVIOUS TRACING , the patient is no longer in atrial fibrillation. PREVIOUS TRACIN 07.04 DOCTOR: Tammy Abebe Interpretating Date/Time 11/30/2017 06:42:15
[2017-11-29 12:00] VITALS: BP 110/53; PULSE 72; RESP 19; TEMP 96.9; O2SAT 95
[2017-11-29] MEDS ORDERED: HYDR-3516 PO (12:10)
[2017-11-29] MEDS ORDERED: COZA50TA PO (12:10)
[2017-11-29] MEDS ORDERED: MIRA3350 PO (12:11)
--- NOTE | 2017-11-29 12:14 | HHI.DS ---
Discharge Summary Admission Date November 25, 2017 at 19:44 Discharge Date: November 29, 2017 Admitting Diagnosis LARGE GI BLEED, MILD ANEMIA, HEMODYNAMICALLY STABLE (1) Rectal bleeding ICD Code: K62.5 - Hemorrhage of anus and rectum Status: Resolved (2) Atrial fibrillation ICD Code: I48.91 - Unspecified atrial fibrillation Status: Acute (3) Weight loss ICD Code: R63.4 - Abnormal weight loss (4) Malnutrition ICD Code: E46 - Unspecified protein-calorie malnutrition (5) HTN (hypertension) ICD Code: I10 - Essential (primary) hypertension Procedures Colonoscopy, hemorrhoids Brief History - From Admission Ptn complains of at least 2 episodes of painless GI bleed over the last [address] Diaz and had Upper gi which showed esophageal stricture, and had cauterization of a bleeding area (10/2017). Ptn loosing weight due to diarrhea over 21 years, but worse over the last few weeks. Patient refused colostomy per her previous evaluation by colorectal surgery for colorectal cancer. Patient did have radiation. Patient has been on a blood thinner past but had some issues with anemia and this was stopped. She has been on iron pills. The patient's family is quite concerned however the patient requests comfort care. I did discuss at length with the patient's family regarding honoring the patient 's wishes. At this point the patient appears to have capacity and decision making. She reports a weight loss. Anemia. And fatigue. In any case gastroneurology consultation was held due to further evaluation for patient's and family planning. Patient may require palliative care eval versus hospice care. Her hemoglobin has remained stable. CBC/BMP: 11/28/17 0150 11/26/17 0614 Significant Findings Laboratory Tests Test 11/27/17 18:30 11/28/17 01:50 Hemoglobin 10.3 GM/DL (11.6-15.3) 10.6 GM/DL (11.6-15.3) Hematocrit 31.6 % (35.0-46.0) 33.6 % (35.0-46.0) Imaging Last Impressions Abdomen/Pelvis CT 11/26/17 0000 Signed Impressions: Service Date/Time: Sunday, November 26, 2017 19:29 - CONCLUSION: 1. Status post cholecystectomy with some mild dilatation of the biliary system. This is most likely reservoir effect. Recommend correlation with liver laboratory values. 2. Scattered diverticulosis of the descending and sigmoid colon without inflammatory changes. 3. Left adnexal cyst measuring 4.0 cm. 4. 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 Deni Barnett MD PE at Discharge GENERAL: This is a well-nourished, well-developed patient, feels much better CARDIOVASCULAR: Regular rate and rhythm without murmurs, gallops, or rubs. RESPIRATORY: Clear to auscultation. Breath sounds equal bilaterally. No wheezes , rales, or rhonchi. GASTROINTESTINAL: Abdomen soft, non-tender, nondistended. Normal active bowel sounds MUSCULOSKELETAL: Extremities without clubbing, cyanosis, or edema. NEURO: Alert & Oriented x4 to person, place, time, situation. Moves all ext x4 Pt update on day of discharge Seen and evaluated today in follow for discharge planning Hemoglobin remained stable. Discussed with family and medical team regarding home health care Hospital Course She seen and evaluated today and hemorrhoids are internal and had some evidence of bleeding. Hemoglobin has remained stable at this time. Patient's fiber has been increasing her diet. Patient education is provided to the patient and the family. Patient is discharged with home health care Pt Condition on Discharge: Good Discharge Disposition: Disch w/ Home Health Serv Discharge Time: <= 30 minutes Discharge Instructions DIET: Follow Instructions for: As Tolerated, No Restrictions, High Fiber Diet Activities you can perform: Regular-No Restrictions New Medications: Polyethylene Glycol 3350 Powder (Miralax Powder) 17 Gm Powd 17 GM PO DAILY for Constipation, #1 CAN 0 Refills Mix and dissolve one measuring cap-ful (17 grams) in water or juice. Hydrocodone/Acetaminophen (Hydrocodone-Acetamin 5-325 mg) 5 Mg-325 Mg Tablet 1 TAB PO Q6H PRN for PAIN SCALE 6 TO 10, #10 TAB Losartan (Cozaar) 50 Mg Tab 50 MG PO DAILY for Blood Pressure Management, #31 TAB Continued Medications: Atorvastatin (Atorvastatin) 10 Mg Tab 10 MG PO HS for Cholesterol Management, #30 TAB 0 Refills Carvedilol (Carvedilol) 6.25 Mg Tab 6.25 MG PO BID, #60 TAB 0 Refills Escitalopram (Escitalopram) 10 Mg Tab 10 MG PO DAILY, #30 TAB 0 Refills Ferrous Fumarate (Ferrous Fumarate) 324 Mg (106 Mg Iron) Tab 325 MG PO TID for Nutritional Supplement, #60 TAB 0 Refills Gabapentin (Gabapentin) 100 Mg Cap 100 MG PO HS, #30 CAP 0 Refills Levothyroxine (Levothyroxine) 75 Mcg Tab 75 MCG PO DAILY for Thyroid, #30 TAB 0 Refills Mirabegron (Myrbetriq) 50 Mg Tab 50 MG PO DAILY for Urinary Symptom Managemen, #30 TAB 0 Refills Belia Freed MD November 29, 2017 12:14
[2017-11-29] MEDS ORDERED: WALKER WHEELS/F1 MIS (16:11)
--- NOTE | 2017-11-29 18:07 | EKG ---
Date Performed: 11/28/2017 Time Performed: 14:07:12 PTAGE: 87 years EKG: Sinus rhythm WITH FIRST DEGREE AV BLOCK ABNORMAL ECG PREVIOUS TRACING : 11/28/2017 08.35 Since the previous tracing, no significant change noted DOCTOR: Tammy Abebe Interpretating Date/Time 11/29/2017 18:06:21
== END 2017-11-29 14:01 | disposition home health service (06) ==
LOC: PHED 18:19 → PHEDA 19:44 → INTOOBSV 19:44 → UNDOADMOB 19:44 → PH3A 20:46 → PHEDA 20:46 → PH3B 11-26 17:17
PROVIDERS: ADMIT Hospitalist; ATTEND Hospitalist
DX: K62.5 Hemorrhage of anus and rectum (principal); I48.91 Unspecified atrial fibrillation; R63.4 Abnormal weight loss; E46 Unspecified protein-calorie malnutrition; R19.7 Diarrhea, unspecified; D64.9 Anemia, unspecified; K57.30 Diverticulosis of large intestine without perforation or abscess without bleeding; N85.8 Other specified noninflammatory disorders of uterus; K64.8 Other hemorrhoids; K64.4 Residual hemorrhoidal skin tags; K58.9 Irritable bowel syndrome, unspecified; I44.0 Atrioventricular block, first degree; R94.31 Abnormal electrocardiogram [ECG] [EKG]; I10 Essential (primary) hypertension; K21.9 Gastro-esophageal reflux disease without esophagitis; N28.9 Disorder of kidney and ureter, unspecified; E03.9 Hypothyroidism, unspecified; H91.90 Unspecified hearing loss, unspecified ear; M19.90 Unspecified osteoarthritis, unspecified site; Z86.718 Personal history of other venous thrombosis and embolism; Z85.048 Personal history of other malignant neoplasm of rectum, rectosigmoid junction, and anus; Z79.899 Other long term (current) drug therapy
CPT/HCPCS: 00811; 45378; 74177; 80053; 83690; 85014; 85018; 85025; 85610; 85730; 86850; 86900; 86901; 93005; 96361; 96374; 97110; 97116; 97162; 97167; 99285; C9113; G0378; G8987; G8988; J7120; Q9963; Q9967